=== PATIENT | female | born 1935 | race Caucasian/White ===

== ENCOUNTER 2018-08-26 08:14 | Day surgery (SDC) | payer SELFPAY ==
[2018-08-26 08:47] VITALS: BP 180/73; PULSE 42; RESP 16; TEMP 36.2; O2SAT 95; BMI 31.2
--- NOTE | 2018-08-26 09:35 | PCM.DC.URO ---
Discharge Diet: Light diet - advance as tolerated Discharge Activity: Return to Normal Activity Call your doctor if you observe: Fever of 101 or Higher Allergies/Adverse Reactions: Allergies No Known Allergies Allergy (Verified 08/19/18 09:07) Medications to take at Discharge Latanoprost 0.005% [Xalatan Opthalmic] 1 drop EACH EYE QHS 08/19/18 Metoprolol Succinate [Toprol Xl] 50 mg PO BID 08/19/18 Oxybutynin Chloride [Ditropan Xl] 10 mg PO DAILY #30 tab.er.24 08/26/18 The following prescriptions were given: Oxybutynin Chloride [Ditropan Xl] 10 mg PO DAILY #30 tab.er.24 Primary Care Physician: Gilmer Flores DO [Primary Care Provider] - Test Results: Test results from this visit will be discussed in further detail at your follow-up appointment, if applicable. Please Follow Up With: Chu Theodore MD When: in 2 weeks, please call to make an appointment.
--- NOTE | 2018-08-26 09:43 | DCINST_ITS ---
Discharge Diet: Light diet - advance as tolerated Discharge Activity: Return to Normal Activity Call your doctor if you observe: Fever of 101 or Higher Allergies/Adverse Reactions: Allergies No Known Allergies Allergy (Verified 08/19/18 09:07) Medications to take at Discharge Latanoprost 0.005% [Xalatan Opthalmic] 1 drop EACH EYE QHS 08/19/18 Metoprolol Succinate [Toprol Xl] 50 mg PO BID 08/19/18 Oxybutynin Chloride [Ditropan Xl] 10 mg PO DAILY #30 tab.er.24 08/26/18 The following prescriptions were given: Oxybutynin Chloride [Ditropan Xl] 10 mg PO DAILY #30 tab.er.24 Primary Care Physician: Gilmer Flores DO [Primary Care Provider] - Test Results: Test results from this visit will be discussed in further detail at your follow- up appointment, if applicable. Please Follow Up With: Chu Theodore MD When: in 2 weeks, please call to make an appointment.
[2018-08-26] MEDS: Cefazolin 2 GM in 0.9% Normal Saline 100 ML IV (09:56)
--- NOTE | 2018-08-26 10:15 | OP.PCM_ITS ---
Report of Operation Date of Procedure: 08/26/18 Pre-Operative Diagnosis: Mixed incontinence Post-Operative Diagnosis: The same Surgery/Procedure Performed:: Cystoscopy and injection of Macroplastique into the urethra. Description of Surgical Findings:: 82-year-old female who has a description of incontinence both with mixed and stress incontinence, she leaks with activity she leaks with urgency she does have frequency daytime and nighttime she has a hard time describing her leakage is just that she is wet all the time on examination to the hypermobile urethra and suspicion for stress incontinence but also probably has an underlying source of urge incontinence. Today we will proceed with a Macroplastique injection to help with stress incontinence and also to prescribe medication Ditropan XL 10 mg daily to help with urgency and frequency. 10-year-old female taken back to the operating room the smooth induction of general anesthesia placed supine on the table, the urethra and vaginal area prepped and draped in usual sterile fashion on examination she had a very atrophic vagina a very short length vagina she had a cystocele, urethra was normal, I then did a cystoscopy and cystoscopy was normal no signs of a fistula left and right ureteral orifice normal trigones normal she did have a cystocele no tumors within the bladder I then drained the bladder and then I prepared the first Macroplastique injection capsule 2.5cc this was injected at the 6 o'clock position in the 3 o'clock position and the 9 o'clock position I then prepared the second capsule and this was injected at the 12 o'clock position and then I did some periurethral injections with the final 2 cc at the 6:00 and 3 o'clock position we then use a very small catheter a 12 Nepali cath catheter to drain the bladder I then looked back into his the urethra with a 17 Nepali scope and upon entering the urethra she had a very nice coapted urethra with compression both and left sides of the urethra with the Macroplastique injection on my review this appears it could be successful the bladder was drained and using the 12 Nepali catheter the patient anesthetic was reversed plan to see her back in a few weeks for checkup to see if the injection of the urethra is helping with her stress incontinence I also prescribed some medication Ditropan XL to help with her urgency and frequency she will see us in the office for follow-up. Explained to the patient and the family she may need a touchup injection in 6 months. Type of Anesthesia:: General - Admit VTE Documentation VTE Present on Admission: No VTE Mechan Device Prophylaxis: SCD's
[2018-08-26 10:22] VITALS: BP 150/56; BP 180/73; PULSE 42; RESP 16; TEMP 36.3; O2SAT 95
[2018-08-26 10:30] VITALS: BP 157/57; BP 180/73; PULSE 44; RESP 16; O2SAT 94
[2018-08-26 10:45] VITALS: BP 160/69; BP 180/73; PULSE 44; RESP 16; TEMP 36; O2SAT 94
[2018-08-26] MEDS: Acetaminophen 325 MG Tablet 650 MG PO (11:12)
[2018-08-26 11:24] VITALS: BP 180/73; BP 182/54; PULSE 48; RESP 16; TEMP 37.2; O2SAT 96
--- NOTE | 2018-08-26 12:11 | SUR.PHASEII ---
patient has met all criteria for discharge but ride is not coming until 2-3pm
--- OUTSIDE RECORDS SUMMARY | 2018-11-27 08:39 | XMS RPT_ITS ---
:1935 Author Organization [facility] Care Team Providers Name Role Phone Chu Theodore Attending Unavailable Chu Theodore Referring Unavailable Gilmer Flores Primary Care Unavailable PROBLEMS PROBLEMS No Problem Records FoundPROCEDURES PROCEDURES No Procedure Records FoundRESULTS RESULTS OPERATIVE REPORT Observed: 08/26/2018 Status: F Source: [facility]A 10:[address] [facility] Medical Records Department [address] [place] [id number] Operative Report 08/26/18 1011 MR#: [id number] Acct: [id number] Name: MARIANA SETH Rep #: [id number] : 1935 82 From: Chu Theodore MD PCP: Gilmer Flores MD Status: [facility] Location: [place] [address] Report of Operation Date of Procedure: 08/26/18 Pre-Operative Diagnosis: Mixed incontinence Post-Operative Diagnosis: The same Surgery/Procedure Performed:: Cystoscopy and injection of Macroplastique into the urethra. Description of Surgical Findings:: 82-year-old female who has a description of incontinence both with mixed and stress incontinence, she leaks with activity she leaks with urgency she does have frequency daytime and nighttime she has a hard time describing her leakage is just that she is wet all the time on examination to the hypermobile urethra and suspicion for stress incontinence but also probably has an underlying source of urge incontinence. Today we will proceed with a Macroplastique injection to help with stress incontinence and also to prescribe medication Ditropan XL 10 mg daily to help with urgency and frequency. 10-year-old female taken back to the operating room the smooth induction of general anesthesia placed supine on the table, the urethra and vaginal area prepped and draped in usual sterile fashion on examination she had a very atrophic vagina a very short length vagina she had a cystocele, urethra was normal, I then did a cystoscopy and cystoscopy was normal no signs of a fistula left and right ureteral orifice normal trigones normal she did have a cystocele no tumors within the bladder I then drained the bladder and then I prepared the first Macroplastique injection capsule 2.5cc this was injected at the 6 o'clock position in the 3 o'clock position and the 9 o'clock position I then prepared the second capsule and this was injected at the 12 o'clock position and then I did some periurethral injections with the final 2 cc at the 6:00 and 3 o'clock position we then use a very small catheter a 12 Beninese cath catheter to drain the bladder I then looked back into his the urethra with a 17 Beninese scope and upon entering the urethra she had a very nice coapted urethra with compression both and left sides of the urethra with the Macroplastique injection on my review this appears it could be successful the bladder was drained and using the 12 Beninese catheter the patient anesthetic was reversed plan to see her back in a few weeks for checkup to see if the injection of the urethra is helping with her stress incontinence I also prescribed some medication Ditropan XL to help with her urgency and frequency she will see us in the office for follow-up. Explained to the patient and the family she may need a touchup injection in 6 months. Type of Anesthesia:: General - Admit VTE Documentation VTE Present on Admission: No VTE Mechan Device Prophylaxis: SCD's 08/26/18 1015 <Electronically signed by Chu Theodore MD> Date Chu Theodore MD CC: Chu Theodore MD; Gilmer Flores MD Signed DISCHARGE INSTRUCTION Observed: 08/26/2018 Status: F Source: JOSE G 9:43 AM [facility] REPOSITORY [facility] Medical Records Department [address] [place] [address] Instructions for Home/Discharge Instructions 08/26/18 0935 MR#: [id number] Acct: [id number] Name: MARIANA SETH Rep #: [id number] : 1935 82 From: Chu Theodore MD PCP: Gilmer Flores MD Status: [facility] [place] Diet: Light diet - advance as tolerated Discharge Activity: Return to Normal Activity Call your doctor if you observe: Fever of 101 or Higher Allergies/Adverse Reactions: Allergies No Known Allergies Allergy (Verified 08/19/18 09:07) Medications to take at Discharge Latanoprost 0.005% [Xalatan Opthalmic] 1 drop EACH EYE QHS 08/19/18 Metoprolol Succinate [Toprol Xl] 50 mg PO BID 08/19/18 Oxybutynin Chloride [Ditropan Xl] 10 mg PO DAILY #30 tab.er.24 08/26/18 The following prescriptions were given: Oxybutynin Chloride [Ditropan Xl] 10 mg PO DAILY #30 tab.er.24 Primary Care Physician: Gilmer Flores DO [Primary Care Provider] - Test Results: Test results from this visit will be discussed in further detail at your follow-up appointment, if applicable. Please Follow Up With: Chu Theodore MD When: in 2 weeks, please call to make an appointment. 08/26/18 0943 <Electronically signed by Chu Theodore MD> Date Chu Theodore MD CC: Gilmer Flores MD ALLERGIES ALLERGIES DATE TYPE / CODE NAME / CODE REACTION SEVERITY SOURCE 08/19/2018 Drug No Known Unknown [facility] Allergy/4160 Allergies/F00 Hospital 81374(SNOMED [id number](RXNOR Repository CT) M) ENCOUNTERS ENCOUNTERS ADMIT/DISCHARGE ACCOUNT ADMITTING ENCOUNTER LOCATION SOURCE NUMBER CLASS 08/26/2018/ [id number] Ambulatory Jose G Agustin 8 9 [facility] ing:SDCRoom: Repository AC07 PAYERS PAYERS ENCOUNTER GUARANTOR PAYER SUBSCRIBER SOURCE 08/26/2018 MARIANA Cain Primary Insurance:[facility] MARIANA SETH2693 CR PACKAGE PLANPolicy MARCIANO [facility] [address], Number: [facility] [id number]: [id number] Repository Date:2018-07-21 () 08/26/2018 Secondary NOT GIVENARELY Agustin Insurance:SELF PAY [facility]: Effective Repository Date:2018-07-21
== END 2018-08-26 13:12 | disposition home health service (06) ==
LOC: SDC 08:24 → AC 08:28
PROVIDERS: Family Provider Family Medicine; PCP Family Medicine; Referring Provider Urology; Visit Provider Urology
PROC: 3E0K8GC Introduction of Other Therapeutic Substance into Genitourinary Tract, Via Natural or Artificial Opening Endoscopic (ICD-10-PCS; CPT 52327; principal; 2018-08-26 10:00)
DX: N39.46 Mixed incontinence (principal); N36.43 Combined hypermobility of urethra and intrinsic sphincter deficiency; R35.0 Frequency of micturition; I10 Essential (primary) hypertension; E11.39 Type 2 diabetes mellitus with other diabetic ophthalmic complication; H40.89 Other specified glaucoma; H42 Glaucoma in diseases classified elsewhere; R01.1 Cardiac murmur, unspecified; Z79.899 Other long term (current) drug therapy
CPT/HCPCS: 51715; J7120; J2405

== ENCOUNTER 2019-06-11 16:49 | Observation (INO) | payer OTHER, SELFPAY ==
[2019-06-11 16:50] VITALS: BP 170/80; PULSE 70; RESP 16; TEMP 36.7; O2SAT 94; BMI 30.9
--- NOTE | 2019-06-11 17:32 | EKG12_ITS ---
Test Reason : FALL Blood Pressure : / mmHG Vent. Rate : 070 BPM Atrial Rate : 070 BPM P-R Int : 336 ms QRS Dur : 118 ms QT Int : 446 ms P-R-T Axes : 076 -75 019 degrees QTc Int : 481 ms Sinus rhythm with 1st degree A-V block Right bundle branch block Left anterior fascicular block Bifascicular block Abnormal ECG Confirmed by JED LOBO, DEBORA ([id number]), newspaper editor SEBASTIÁN FRITZ ([id number]) on 06/15/2019 10:20:58 AM Referred By: DC Confirmed By:DEBORA ADKINS MD
--- NOTE | 2019-06-11 17:32 | RAD_ITS ---
STUDY: X-RAY CHEST REASON FOR EXAM: Female, 83 years old. Fall. Cough. TECHNIQUE: Frontal view of the chest COMPARISON: None. FINDINGS: The lungs are clear. There are no pleural effusions. There is no pneumothorax. The heart is normal in size. The visualized osseous structures are within normal limits. RAD/Chest 1 View (Portable) IMPRESSION: No acute thoracic pathology. Electronically Signed: Kwadwo Bowman, at 18:31 EDT Tel , Service support ,
--- NOTE | 2019-06-11 17:32 | RAD_ITS ---
STUDY: X-RAY - LUMBAR SPINE REASON FOR EXAM: Female, 83 years old. Fall TECHNIQUE: 3 view(s) of the lumbar spine were obtained. COMPARISON: None FINDINGS: There is no evidence of fracture or dislocation in the lumbar spine. The vertebral body heights are well-maintained. There are mild degenerative changes with disc space narrowing. There are calcifications in the pelvis which likely represent fibroids. RAD/Lumbar Spine 2 or 3 Views IMPRESSION: No fracture or dislocation in the lumbar spine. Mild degenerative change. Calcifications in the pelvis which likely represent fibroids. Electronically Signed: Kwadwo Bowman, at 18:29 EDT Tel , Service support ,
--- NOTE | 2019-06-11 17:35 | CT_ITS ---
We are attempting to reach an attending provider to discuss findings. An addendum with communication details will be sent when the communication is complete. STUDY: CT BRAIN WITHOUT CONTRAST REASON FOR EXAM: Female, 83 years old. Altered mental status. Fall. RADIATION DOSAGE (If Supplied By Facility): CTDIvol = ( 44.99 ) mGy, DLP = ( 796.11 ) mGycm TECHNIQUE: Transaxial CT imaging of the brain was performed without administration of intravenous contrast material. Individualized dose optimization techniques were used for this CT. COMPARISON: None. FINDINGS: There is a large right MCA territory infarct which appears subacute in nature. There are no additional areas of infarction. There is no acute hemorrhage. The ventricles are normal in configuration. There is no hydrocephalus. The visualized paranasal sinuses are clear. The mastoid air cells are well aerated. There is no skull fracture. CT/Brain/Head without Contrast IMPRESSION: Large right MCA territory infarct which appears subacute in nature. Electronically Signed: Kwadwo Bowman, at 18:23 EDT Tel , Service support ,
--- NOTE | 2019-06-11 17:37 | ED.DCSUM_ITS ---
- ER Visit Summary Date of Service: 06/11/19 Chief Complaint: Fall History of Present Illness: The patient is a 83 F who fell 3 weeks ago and landed on her tailbone. She complains of pain to that area since. She has seen a chiropractor, but is having continued pain. She said that she has not had x- rays. She denies any leg weakness or numbness. Denies any change in bowel or bladder. She also complains of some fuzziness and she thinks she might of hit her head. Her family thinks that she is not acting like herself. No recent falls. She did have cataract surgery on 1 of her eyes weeks ago and then the other eye 2 days ago. No new vision changes. No speech changes or facial droop. No focal weakness. No fevers. No chest pain or shortness of breath. No abdominal pain or GI symptoms. No urinary symptoms. Physical Examination: Afebrile and vital signs unremarkable. Alert and oriented. No acute distress. Head and neck atraumatic. Heart regular. Lungs clear. Abdomen soft. Extremity is nontender with no edema. Straight leg raise negative. Good strength and sensation. Test Results: CT brain, chest x-ray, lumbar x-rays pending. EKG and troponin pending. Basic labs and urinalysis pending. Emergency Department Course and Treatment: Patient declined pain medicine. Will check for trauma as well as underlying causes of her mental status changes. EKG showed sinus rhythm at a rate of 70 with first-degree AV block, right bundle branch block and left anterior fascicular block. CBC, BMP, urinalysis unremarkable. Troponin indeterminate 0.068. Chest x-ray normal and lumbar x-rays unremarkable. CT of her brain was abnormal. She had a right side large MCA territory subacute infarct. I discussed this with the radiologist. He said it probably happened about 2 or 3 days ago, but is not sure. He said it does not look acute. I reevaluated the patient. It sounds like her mental status symptoms started around 2 or 3 days ago. She did not have any other neurologic symptoms. NIH st roke scale is 0. Patient will be admitted for further care. Treatment Plan: As above Disposition: Admission Impression: 1. Indeterminate troponin 2. Subacute right MCA infarct 3. Lumbar back pain This note was generated with [employer]Note[employer] software. It may contain incorrect words, spelling, and punctuation that were not noted in review of the chart prior to signing ED Disposition - Plan for ED Patient: Referrals: Gilmer Flores DO [Primary Care Provider] -
[2019-06-11 18:07] LABS: Absolute Lymphocyte Count 1.77 X10^3/uL (0.83-4.51); Absolute Neutrophil Count 6.1 X10^3/uL (2.0-7.7); Basophil# 0.03 X10^3/uL; Basophil% 0.3 % (0-1); Eosinophil# 0.18 X10^3/uL; Hematocrit 39.3 % (37-47); Hemoglobin 12.6 g/dL (12.0-15.0); Lymphocyte # 1.77 X10^3/ul (4.0); Lymphocyte % 19.8 % (19-41); Mean Corp Hgb Conc 32.1 g/dL (32-36); Mean Corpuscular Hgb 30.1 pg (27.0-32.0); Mean Platelet Vol. 8.7 fl (6.2-12.0); Monocyte# 0.79 X10^3/uL; Monocyte% 8.9 % (0-10); NRBC Flagged by Analyzer 0 % (0-5); Neutrophil # 6.13 X10^3/uL (2.7-7.7); Neutrophil % 68.8 % (47-70); Platelet Count 337 K/mm3 (150-450); RBC Distribution Width CV 13.2 % (11.6-14.6); RBC Distribution Width SD 45.3 fl (35.1-43.9); Red Blood Count 4.18 M/mm3 (4.2-5.4); White Blood Count 8.9 K/mm3 (4.4-11.0)
[2019-06-11 18:24] LABS: Anion Gap 5 (5-15); BUN 29 mg/dL (7-18); BUN/Creat Ratio 25.4 RATIO (10-20); Calcium,Total 9.3 mg/dL (8.5-10.1); Chloride 103 mmol/L (98-107); Creatinine, Serum 1.14 mg/dL (0.55-1.02); EST Glomerular Filtration Rate 49 mL/min (>60); Est Glom Filt Rate - Afr Amer 59 mL/min (>60); Estimated Creatinine Clearance 32.02 ml/min; Glucose 106 mg/dL (74-106); Potassium 3.8 mmol/L (3.5-5.1); Sodium Level 140 mmol/L (136-145)
[2019-06-11 18:59] LABS: Bacteria 0 SEEN /hpf (None Seen); Mucous, Urine 0 SEEN /hpf (<or=2+); Red Blood Cells-Urine 0 SEEN /hpf (0-5); Squamous Epithelial Cells - UA 0 SEEN /hpf (5-10); White Blood Cells 0 SEEN /hpf (0-5)
[2019-06-11 19:05] LABS: Color, Urine Yellow (Yellow); Glucose, Dipstick Normal (Normal); Ketone-Dipstick Negative (Negative); Leukocyte Esterase-Dipstick Negative /ul (Negative); Nitrite-Dipstick Negative (Negative); Occult Blood-Urine Negative /ul (Negative); Protein-Dipstick Negative (Negative); Specific Gravity, Urine 1.005 (1.002-1.030); Urine Bilirubin Dipstick Negative (Negative); Urine Clarity Clear (Clear); Urine Urobilinogen Normal (Normal)
[2019-06-11] MEDS: fentaNYL 100 MCG/2 ML Ampul 50 MCG IV (19:06)
[2019-06-11 19:08] VITALS: BP 196/80; PULSE 66; RESP 19; O2SAT 96
--- NOTE | 2019-06-11 20:14 | HP.PCM_ITS ---
Problem List (1) Focal infarction of brain Status: Acute (2) Hypertensive urgency Status: Acute (3) Acute encephalopathy Status: Acute (4) Lower back pain Status: Acute History of Present Illness Date of Admission: 06/11/19 Chief Complaint: altered mental status The patient is a 83 year old F with a significant history of hypertension who recently had a cataract surgery now with altered mental status that started a day before his presentation. Family described this as fuzzy mindedness. A CT of her brain showed large right MCA territory infarct which appears subacute in nature. Patient denies inability to walk; speech changes or any focal neurological symptoms. Patient indeed was brought to the hospital because of progressively worsening lower back pain that she developed after falling 3 weeks ago on her tailbone. She went to a chiropractor and has been receiving ice and probable TENS to the site. Her pain worsens when she sits too long. Her pain improves with the chiropractic maneuvers and ice. She denies any bowel or bladder incontinence. At the Emergency department her troponin was found to be elevated. Past Medical History Medical History: Medical History (Last Updated 06/12/19 @ 06:05 by Korey Ruff MD) HTN (hypertension) I10 Allergies No Known Allergies Allergy (Verified 08/19/18 09:07) Home Medications: Ambulatory Orders Medication Instructions Recorded Metoprolol Succinate [Toprol Xl] 50 mg PO BID 08/19/18 Brinzolamide/Brimonid Tart 1 drp EACH EYE BID 06/11/19 [Simbrinza 1%-0.2% Eye Drops] Ofloxacin 1 drp RIGHT EYE 4X/DAY 06/11/19 Prednisolone Acetate 1 drp RIGHT EYE 4X/DAY 06/11/19 Surgical History: cataract, - - Six C-sections Lives: Spouse/ Significant Other Smoking Status: Never smoker Alcohol: None - *Family History Maternal History Items: Cancer - colon Paternal History Items: Heart Disease Review of Systems Constitutional: Denies: Chills, Fever, Weight Change HEENT: Denies: Head Aches, Sinus Congestion, Sinus Drainage Cardiovascular: Denies: Chest Pain, Palpitations Respiratory: Denies: Cough, Shortness of breath at rest, Sputum production Gastrointestinal: Denies: Abdominal Pain, Nausea, Vomiting Genitourinary: Denies: Dysuria Musculoskeletal: Reports: Back Pain. Denies: Joint Pain, Joint Tenderness Skin: Denies: Rash, Wounds Neurological: Reports: Confusion. Denies: Focal weakness, Numbness, Tingling Psychiatric: Denies: Anxiety, Depression, Homicidal Ideations, Suicidal Ideations Hematologic/ Lymphatic: Denies: Easy Bruising, Easy Bleeding VTE Information - Inpt Only VTE Present on Admission: No VTE Mechan Device Prophylaxis: None VTE Pharm Prophylaxis ordered?: Yes Patient Problems: Active and Suspected Problems (Last Updated 06/12/19 @ 06:05 by Korey Ruff MD) Focal infarction of brain (Acute) Hypertensive urgency (Acute) Acute encephalopathy (Acute) Lower back pain (Acute) - Physical Exam General: Alert, Oriented x3, Cooperative HEENT: Atraumatic, PERRLA, EOMI, Normocephalic Neck: Supple, No JVD, Negative Carotid Bruits Lungs: Clear to auscultation, Normal air movement Cardiovascular: Regular rate, No murmurs Abdomen: Bowel Sounds Present, Soft, Non Tender Extremities: No edema, Capillary Refill Less than 3 Seconds Skin: No rashes, No breakdown Musculoskeletal: No Tenderness to Palpation of Joints or Extremities Neurological: Cranial nerves II-XII grossly intact - Not spontaneous in answering questions. Unclear how much is due to language barrier as family has to interprete some questions to patient with different language., Motor Exam 5/5 strength throughout, Muscle tone normal, - - Needs increase effort to follow some directions Psych/Mental Status: Normal Affect, Appropriate Vital Signs Temp Pulse Resp BP Pulse Ox 98.1 F 66 19 H 196/80 H 96 06/11/19 16:50 06/11/19 19:08 06/11/19 19:08 06/11/19 19:08 06/11/19 19:08 Oxygen Delivery Method Room Air Weight: 79.379 kg Body Mass Index (BMI) 30.9 Laboratory Tests Past 24 Hrs 06/11/19 06/11/19 06/11/19 17:55 17:55 18:50 WBC 8.9 RBC 4.18 L Hgb 12.6 Hct 39.3 MCV 94.0 MCH 30.1 MCHC 32.1 RDW Std Deviation 45.3 H RDW Coeff of Azeb 13.2 Plt Count 337 MPV 8.7 Immature Gran % (Auto) 0.200 Neut % (Auto) 68.8 Lymph % (Auto) 19.8 [place] % (Auto) 8.9 Eos % (Auto) 2.0 Baso % (Auto) 0.3 Absolute Neuts (auto) 6.1 Absolute Lymphs (auto) 1.77 Nucleated RBC % 0 Sodium 140 Potassium 3.8 Chloride 103 Carbon Dioxide 32.0 Anion Gap 5 BUN 29 H Creatinine 1.14 H Estim Creat Clear Calc 32.02 Est GFR (MDRD) Af Amer 59 L Est GFR (MDRD) Non-Af 49 L BUN/Creatinine Ratio 25.4 H Glucose 106 Calcium 9.3 Troponin I 0.068 H Urine Color Yellow Urine Clarity Clear Urine pH 7.0 Ur Specific [place] 1.005 Urine Protein Negative Urine Glucose (UA) Normal Urine Ketones Negative Urine Occult Blood Negative Urine Nitrite Negative Urine Bilirubin Negative Urine Urobilinogen Normal Ur Leukocyte Esterase Negative Urine RBC 0 SEEN Urine WBC 0 SEEN Ur Squamous Epith Cells 0 SEEN Urine Bacteria 0 SEEN Urine Mucus 0 SEEN Assessment/Plan All Active Problems (Last Updated 06/12/19 @ 06:05 by Korey Ruff MD) Focal infarction of brain (Acute) Hypertensive urgency (Acute) Acute encephalopathy (Acute) Lower back pain (Acute) The patient is a 83 year old F with a significant history of hypertension who recently had a cataract surgery now with altered mental status found to have radiographic evidence of large large right MCA territory infarct and also with back pain following recent fall. Subacute right MCA territorial infarcts NINDS NIH Scale was 0 CT of the head showed large right MCA territory infarct which appears subacute in nature. CT of the head was independently reviewed. I agree with radiologist interpretation. Per emergency department radiograph was discussed with radiologist who said that the stroke might have occurred within 2 to 3 days. Patient is not a candidate of a thrombectomy since her symptoms are cared more than 24 hours ago. -Check Hba1c, Lipid level Physical therapy, occupational therapy and speech therapy to work with patient. N.p.o. until bedside swallow eval. Daily aspirin. High intensity statin Lipid profile and A1c ordered. Patient is outside window of permissive hypertension since infarct is subacute on CT. MRI/MRAM of head; brain; and neck. Echocardiogram ordered. Hypertensive urgency On presentation higher systolic blood pressure was 258 Home blood pressure medication continued. Labetalol as needed ordered. Trend blood pressure and adjust blood pressure medications. Acute encephalopathy Patient does not have change of level of consciousness but family reports that she is fuzzy minded. Likely due to stroke. Management of stroke as above. Lower back pain Oxycodone PRN ordered. PRN Zofran IV and bowel protocol ordered. PT and OT to work patient. Elevated troponin Troponin elevated. Trended up. CTPA on a rising course. Likely secondary to subacute infarct. No ST or T wave abnormality. Cardiology consulted. DVT prophylaxis SCD ordered Code Visit Inpatient E&M: 67724 Init Hosp L3
--- NOTE | 2019-06-11 20:58 | ECHOD_ITS ---
Reason For Study: TIA/CVA Procedure This was a 2D Doppler, Color Flow transthoracic echocardiogram. Exam performed portable in patient room. Left Ventricle Severe concentric left ventricular hypertrophy. The estimated ejection fraction is 65 %. No regional wall motion abnormalities noted. Right Ventricle Normal size and thickness. Normal systolic function. Atria The left atrium is severely enlarged. Normal right atrium. Normal atrial septum. Bubble contrast study negative for right to left interatrial shunt. Mitral Valve Mild diffuse mitral valve thickening. Severe mitral annular calcification extending into the posterior leaflet. Moderate mitral valve stenosis. Peak transmitral valve gradient 13 mmHg. Mean transmitral valve gradient 5 mmHg. Mild (1+) mitral valve insufficiency. Tricuspid Valve Normal tricuspid valve. Mild (1+) tricuspid valve insufficiency. Right ventricular systolic pressure estimated to be 51 mmHg. Moderate pulmonary hypertension. Aortic Valve Trisinus/trileaflet aortic valve. Moderate diffuse aortic valve thickening. Moderate diffuse aortic valve calcification. Moderate restriction of the aortic valve. Mild to moderate aortic stenosis. Peak aortic valve gradient 26 mmHg. Mean aortic valve gradient 14 mmHg. Calculated aortic valve area (continuity equation) is 1.2 cm2. Pulmonic Valve Normal pulmonic valve. Great Vessels Calcified aortic root. Mild atherosclerosis of the aortic arch. Normal inferior vena cava. Inferior vena cava collapse with sniff. Pericardium/Pleural No pericardial effusion. Medication Performed a rapid injection of agitated mix of 9 cc saline and 1cc air to assess for atrial septal defect. MMode/2D Measurements & Calculations LVIDd: 4.4 cm IVSd: 1.5 cm LVOT diam: 1.9 cm LVIDs: 3.1 cm LVPWd: 1.5 cm RVDd: 3.5 cm FS: 29.1 % LVOT area: 2.9 cm2 Ao root diam: 2.9 cm LAV(MOD-bp): 106.5 ml LA A4 area: 30.7 cm2 LAV(MOD-bp) Indexed: 58.3 ml/m2 LAV(MOD-sp2): 102.5 ml LAV(MOD-sp4): 105.0 ml LA dimension(2D): 5.6 cm RA A4 area: 16.2 cm2 Time Measurements MV dec time: 0.19 sec Doppler Measurements & Calculations MV E max ronnell: 203.5 cm/sec MV V2 max: 178.2 cm/sec Ao V2 max: 252.4 cm/sec MV A max ronnell: 136.5 cm/sec MV max P.7 mmHg Ao max P.5 mmHg MV E/A: 1.5 MV V2 mean: 107.8 cm/sec Ao V2 mean: 176.2 cm/sec MV mean P.1 mmHg Ao mean P.8 mmHg MV V2 VTI: 66.4 cm Ao V2 VTI: 62.9 cm MVA(VTI): 1.2 cm2 FADUMO(I,D): 1.2 cm2 FADUMO(V,D): 1.2 cm2 LV V1 max: 101.9 cm/sec SV(LVOT): 78.5 ml PA V2 max: 123.1 cm/sec LV V1 max P.2 mmHg LV V1 mean P.4 mmHg LV V1 mean: 73.4 cm/sec LV V1 VTI: 27.1 cm TR max ronnell: 339.8 cm/sec MV P1/2t-pr_phl: 134.7 msec TR max P.2 mmHg Interpretation Summary Severe concentric left ventricular hypertrophy. The estimated ejection fraction is 65 %. The left atrium is severely enlarged. Bubble contrast study negative for right to left interatrial shunt. Moderate mitral valve stenosis. Mild (1+) mitral valve insufficiency. Mild (1+) tricuspid valve insufficiency. Right ventricular systolic pressure estimated to be 51 mmHg. Moderate pulmonary hypertension. Mild to moderate aortic stenosis. Calculated aortic valve area (continuity equation) is 1.2 cm2. There is no comparison study available. Ordering Physician: Korey Ruff Referring Physician: DEBBY SALGADO Performed By: Nkechi Gaytan, MACARENA, RVT
[2019-06-11 20:59] VITALS: PULSE 85
[2019-06-11 21:06] VITALS: BMI 31.1
[2019-06-11 21:10] VITALS: BP 258/90; PULSE 92; RESP 18; TEMP 37.1; O2SAT 92
[2019-06-11 21:29] VITALS: BP 248/88
[2019-06-11 22:00] VITALS: BMI 31.2
[2019-06-11 22:01] LABS: Hemoglobin A1c 6.3 % (4.2-6.3)
[2019-06-11] MEDS: prednisoLONE eye drops (5 mL) 1 DROP OPTH.BTL 1 DRP RIGHT EYE (22:14)
[2019-06-11 22:15] VITALS: PULSE 92
[2019-06-11] MEDS: Heparin Injection (Vial) 5,000 UNIT/ML VIAL 5000 UNIT SC (22:15)
[2019-06-11] MEDS: 0.9% NaCl Peripheral Flush Adult/Peds IV (22:15)
[2019-06-11] MEDS: Senna/Docusate Sodium 1 Tablet PO (22:15)
[2019-06-11] MEDS: Metoprolol Tartrate 50 MG Tablet PO (22:15)
[2019-06-11] MEDS: Atorvastatin Calcium 40 MG Tablet PO (22:15)
[2019-06-11 22:57] VITALS: BMI 31.1
[2019-06-11] MEDS: Acetaminophen 325 MG Tablet 650 MG PO (23:09)
[2019-06-12] VITALS (10 sets, daily range): BP systolic 150–218; BP diastolic 60–67; PULSE 45–98; RESP 16–18; TEMP 36.5–36.9; O2SAT 93–98; BMI 31.1
[2019-06-12] MEDS: MELATONIN 3 MG TABLET PO (00:26)
[2019-06-12] MEDS: Acetaminophen 325 MG Tablet 650 MG PO ×2 (05:06→12:15)
[2019-06-12 06:59] LABS: Cholesterol 219 mg/dL (200); High Density Lipoprotein 50 mg/dL; Triglycerides 127 mg/dL; Very Low Density Lipoprotein 25 mg/dL (5-40)
--- NOTE | 2019-06-12 07:53 | DS.PCM_ITS ---
Discharge Date and Diagnosis - Problem List Patient Problems: Active and Suspected Problems (Last Updated 06/12/19 @ 06:05 by Korey Ruff MD) Focal infarction of brain (Acute) Hypertensive urgency (Acute) Acute encephalopathy (Acute) Lower back pain (Acute) Date of Admission: 06/11/19 Date of Discharge: 06/12/19 - Primary Discharge Diagnosis Active and Suspected Problems (Last Updated 06/12/19 @ 06:05 by Korey Ruff MD) Focal infarction of brain (Acute) Hypertensive urgency (Acute) Acute encephalopathy (Acute) Lower back pain (Acute) Hospital Course and Treatment Procedures: 2-D Echocardiogram Summary of Care Provided: The patient is a 83 year old F with a significant history of hypertension who recently had a cataract surgery now with altered mental status found to have radiographic evidence of large large right MCA territory infarct and also with back pain following recent fall. Due to lack of neurology coverage at our Hospital patient will be transferred to outside Hospital. Case was discussed with [facility] Subacute right MCA territorial infarcts NINDS NIH Scale per protocol CT of the head showed large right MCA territory infarct which appears subacute in nature. CT of the head was independently reviewed. I agree with radiologist interpretation. Per emergency department radiograph was discussed with radiol ogist who said that the stroke might have occurred within 2 to 3 days. Patient is not a candidate of a thrombectomy since her symptoms occurred more than 24 hours ago. -Check Hba1c, Lipid level Physical therapy, occupational therapy and speech therapy to work with patient. N.p.o. until bedside swallow eval. Daily aspirin. High intensity statin Lipid profile and A1c ordered. Patient is outside window of permissive hypertension since infarct is subacute on CT. MRI/MRAM of head; brain; and neck ordered. Echocardiogram ordered and done: Per seat cover maker notes : A bedside echocardiogram was performed which demonstrated moderate left ventricular hypertrophy, normal LV and intact LV function with an EF of 65%, severe posterior mitral leaflet mitral annular calcification, left atrial enlargement, moderate thickening of the aortic valve with at least moderate aortic stenosis. Final results are pending. Because there is no Neurology coverage over the weekend at our Hospital ([facility]) patient will be transferred to outside Hospital. transfer line to [facility] was done Hypertensive urgency On presentation higher systolic blood pressure was 258 Home blood pressure medication was ordered with prn labetatol also ordered. Patient received prn labetatolol. BP thereafter was in the 150S (systolic) Acute encephalopathy Patient does not have change of level of consciousness but family reports that she is fuzzy minded. Likely due to stroke. Management of stroke as above. Lower back pain Oxycodone PRN ordered. PRN Zofran IV and bowel protocol ordered. PT and OT to work patient. Elevated troponin Troponin elevated. Trended up. CTPA on a rising course. Likely secondary to subacute infarct. No ST or T wave abnormality. Cardiology consulted. DVT prophylaxis SCD Time for discharge was 2 hours. This involved talking to patient, physical exams, discussing transfer with patient; discussing transfer with family; and discussing transfer with accepting physician for transfer and transfer center line. Patient Problems: Active and Suspected Problems (Last Updated 06/12/19 @ 06:05 by Korey Ruff MD) Focal infarction of brain (Acute) Hypertensive urgency (Acute) Acute encephalopathy (Acute) Lower back pain (Acute) - Physical Exam General: Alert, Oriented x3, Cooperative HEENT: Atraumatic, PERRLA, EOMI, Normocephalic Neck: Supple, No JVD, Negative Carotid Bruits Lungs: Clear to auscultation, Normal air movement Cardiovascular: Regular rate, No murmurs Abdomen: Bowel Sounds Present, Soft, Non Tender Extremities: No edema, Capillary Refill Less than 3 Seconds Skin: No rashes, No breakdown Musculoskeletal: No Tenderness to Palpation of Joints or Extremities Neurological: Cranial nerves II-XII grossly intact, Muscle tone normal, - - Noted to have mild left sided neglect. Psych/Mental Status: Normal Affect, Appropriate Vital Signs Temp Pulse Resp BP Pulse Ox 98.2 F 50 L 16 150/67 H 98 06/12/19 05:10 06/12/19 07:03 06/12/19 05:10 06/12/19 05:10 06/12/19 05:10 Oxygen Delivery Method Room Air Weight: 79.8 kg Body Mass Index (BMI) 31.1 Intake and Output for Last 24 Hours 06/10/19 06/11/19 06/12/19 23:59 23:59 23:59 Intake Total 0 / 0 50 / 50 Balance 0 / 0 50 / 50 Laboratory Tests Past 24 Hrs 06/11/19 06/11/19 06/11/19 17:55 17:55 17:55 WBC 8.9 RBC 4.18 L Hgb 12.6 Hct 39.3 MCV 94.0 MCH 30.1 MCHC 32.1 RDW Std Deviation 45.3 H RDW Coeff of Azeb 13.2 Plt Count 337 MPV 8.7 Immature Gran % (Auto) 0.200 Neut % (Auto) 68.8 Lymph % (Auto) 19.8 [place] % (Auto) 8.9 Eos % (Auto) 2.0 Baso % (Auto) 0.3 Absolute Neuts (auto) 6.1 Absolute Lymphs (auto) 1.77 Nucleated RBC % 0 Sodium 140 Potassium 3.8 Chloride 103 Carbon Dioxide 32.0 Anion Gap 5 BUN 29 H Creatinine 1.14 H Estim Creat Clear Calc 32.02 Est GFR (MDRD) Af Amer 59 L Est GFR (MDRD) Non-Af 49 L BUN/Creatinine Ratio 25.4 H Glucose 106 Hemoglobin A1c 6.3 Calcium 9.3 Troponin I 0.068 H Triglycerides Cholesterol LDL Cholesterol VLDL Cholesterol HDL Cholesterol Urine Color Urine Clarity Urine pH Ur Specific [place] Urine Protein Urine Glucose (UA) Urine Ketones Urine Occult Blood Urine Nitrite Urine Bilirubin Urine Urobilinogen Ur Leukocyte Esterase Urine RBC Urine WBC Ur Squamous Epith Cells Urine Bacteria Urine Mucus 06/11/19 06/11/19 06/12/19 18:50 21:22 00:02 WBC RBC Hgb Hct MCV MCH MCHC RDW Std Deviation RDW Coeff of Azeb Plt Count MPV Immature Gran % (Auto) Neut % (Auto) Lymph % (Auto) [place] % (Auto) Eos % (Auto) Baso % (Auto) Absolute Neuts (auto) Absolute Lymphs (auto) Nucleated RBC % Sodium Potassium Chloride Carbon Dioxide Anion Gap BUN Creatinine Estim Creat Clear Calc Est GFR (MDRD) Af Amer Est GFR (MDRD) Non-Af BUN/Creatinine Ratio Glucose Hemoglobin A1c Calcium Troponin I 0.096 H 0.166 H Triglycerides Cholesterol LDL Cholesterol VLDL Cholesterol HDL Cholesterol Urine Color Yellow Urine Clarity Clear Urine pH 7.0 Ur Specific [place] 1.005 Urine Protein Negative Urine Glucose (UA) Normal Urine Ketones Negative Urine Occult Blood Negative Urine Nitrite Negative Urine Bilirubin Negative Urine Urobilinogen Normal Ur Leukocyte Esterase Negative Urine RBC 0 SEEN Urine WBC 0 SEEN Ur Squamous Epith Cells 0 SEEN Urine Bacteria 0 SEEN Urine Mucus 0 SEEN 06/12/19 06/12/19 06/12/19 03:25 05:58 05:58 WBC RBC Hgb Hct MCV MCH MCHC RDW Std Deviation RDW Coeff of Azeb Plt Count MPV Immature Gran % (Auto) Neut % (Auto) Lymph % (Auto) [place] % (Auto) Eos % (Auto) Baso % (Auto) Absolute Neuts (auto) Absolute Lymphs (auto) Nucleated RBC % Sodium Potassium Chloride Carbon Dioxide Anion Gap BUN Creatinine Estim Creat Clear Calc Est GFR (MDRD) Af Amer Est GFR (MDRD) Non-Af BUN/Creatinine Ratio Glucose Hemoglobin A1c Calcium Troponin I 0.196 H 0.196 H Triglycerides 127 Cholesterol 219 H LDL Cholesterol 144 H VLDL Cholesterol 25 HDL Cholesterol 50 Urine Color Urine Clarity Urine pH Ur Specific [place] Urine Protein Urine Glucose (UA) Urine Ketones Urine Occult Blood Urine Nitrite Urine Bilirubin Urine Urobilinogen Ur Leukocyte Esterase Urine RBC Urine WBC Ur Squamous Epith Cells Urine Bacteria Urine Mucus Home Medications: Medications to take at Discharge Metoprolol Succinate [Toprol Xl] 50 mg PO BID 08/19/18 Brinzolamide/Brimonid Tart [Simbrinza 1%-0.2% Eye Drops] 1 drp EACH EYE BID 06/11/19 Ofloxacin 1 drp RIGHT EYE 4X/DAY 06/11/19 Prednisolone Acetate 1 drp RIGHT EYE 4X/DAY 06/11/19 Primary Care Physician: Gilmer Flores DO [Primary Care Provider] - Medical Necessity - Tobacco Use Smoking Status: Never smoker Tobacco Use: Non-smoker Meaningful Use Info Meaningful Use Diagnoses (Choose all that apply): Ischemic CVA - CVA Therapy Assessed for PT,OT and/or ST?: Yes - Ischemic Stroke Antithrombotic order at d/c?: No Reason antithrombotic not ordered: Treatment not Indicated Dx of Atrial fib/flutter?: No Anticoagulant at discharge?: No Reason anticoagulant not ordered: Treatment not Indicated Statins at discharge?: Yes Primary Dx Acute Ischemic CVA?: Yes IV tPA ordered during stay?: No Reason IV t-PA not ordered: Medical Contraindication - VTE Anticoag overlap given w/in hospital stay or rx'd at dc?: Yes Pt receive overlap for 5 days?: No Reason overlap not ordered, prescribed, or given for 5 days: Treatment Not Indicated Code Visit Inpatient E&M: 84508 Disch Hosp
--- NOTE | 2019-06-12 09:25 | PCM.CONS.C ---
Problem List (1) Hypertensive urgency Status: Acute Reason for Consult Date of Consultation: 06/12/19 Reason for Consultation: Abnormal troponin, hypertension History of Present Illness: The patient is a 83 year old F nondiabetic, non-smoker, no previous known coronary artery history, was told she had a heart murmur about 10 years ago but never had it investigated. Patient was doing well up until around 3 weeks ago when she fell hitting her tailbone. She had subsequent pain in that area for several days, and underwent 2 cataract procedures during that interim time. Apparently the patient's pain continued, and the patient's family noted that she was not acting herself with some difficulty with speech but no focal deficits. Her blood pressure went as high as 250/90. Patient sought medical attention [facility] on 06/11/2019 and an EKG demonstrated normal sinus rhythm with first-degree AV block, right bundle branch block and left anterior hemiblock. In order to evaluate her mental status issues she underwent a CT scan which showed a large right-sided subacute middle cerebral artery infarct. In addition initial troponins were obtained and which were found to be 0.08, and increased to 0.196. At no time as the patient complained of chest pain, angina, shortness of breath or dyspnea on exertion. She denies any palpitations, presyncope or syncope. She thinks that she may have hit her head when she fell 3 weeks ago. Patient was treated with baby aspirin. A bedside echocardiogram was performed which demonstrated moderate left ventricular hypertrophy, normal LV and intact LV function with an EF of 65%, severe posterior mitral leaflet mitral annular calcification, left atrial enlargement, moderate thickening of the aortic valve with at least moderate aortic stenosis. Final results are pending. Patient is awaiting transfer to [facility] for further care of her middle cerebral infarct. [] Past Medical History Allergies/Adverse Reactions: Allergies No Known Allergies Allergy (Verified 08/19/18 09:07) Home Medications: Ambulatory Orders Medication Instructions Recorded Metoprolol Succinate [Toprol Xl] 50 mg PO BID 08/19/18 Brinzolamide/Brimonid Tart 1 drp EACH EYE BID 06/11/19 [Simbrinza 1%-0.2% Eye Drops] Ofloxacin 1 drp RIGHT EYE 4X/DAY 06/11/19 Prednisolone Acetate 1 drp RIGHT EYE 4X/DAY 06/11/19 Surgical History: cataract, - - Six C-sections - *Family History Maternal History Items: Cancer - colon Paternal History Items: Heart Disease Lives: Spouse/ Significant Other Smoking Status: Never smoker Tobacco Use: Non-smoker Alcohol: None Review of Systems - Review of Systems General: Denies: Fever, Night Sweats, Fatigue Cardiovascular: Denies: Chest Discomfort, Shortness of Breath, Orthopnea, PND, Peripheral Edema, Palpitations, Lightheadedness, Dizziness, Near Syncope, Syncope Respiratory: Denies: Cough, Sputum Production, Hemoptysis Gastrointestinal: Denies: Hematemesis, Hematochezia, Melena Genitourinary: Denies: Dysuria, Hematuria Skin: Denies: Rash Subjectve: Patient resting comfortably, no acute distress, no focal deficits other than difficulty with eye tracking. Objective: Vital Signs Temp Pulse Resp BP Pulse Ox 98.2 F 50 L 16 150/67 H 95 06/12/19 05:10 06/12/19 07:03 06/12/19 05:10 06/12/19 05:10 06/12/19 07:20 Oxygen Delivery Method Room Air Weight: 175 lb 14.862 oz Body Mass Index (BMI) 31.1 Intake and Output for Last 24 Hours 06/10/19 06/11/19 06/12/19 23:59 23:59 23:59 Intake Total 0 / 0 50 / 50 Balance 0 / 0 50 / 50 General: Awake, Alert, Oriented x 3 HEENT: PERRL, EOMI, Sclera Non Icteric Neck: Supple, Good ROM, No Lymph Node Enlargement Lungs: Clear to auscultation Cardiovascular: Regular Rhythm, Normal S1, Normal S2, No Rubs, No Gallops Murmur Murmur: Grade 3/6, Crescendo-Decrescendo Vascular: Radiation of Murmur to Carotid Arteries Abdomen: Bowel Sounds Present, Soft, Non Tender, No HSM, No Organomegaly 06/11/19 17:55: WBC 8.9, RBC 4.18 L, Hgb 12.6, Hct 39.3, MCV 94.0, MCH 30.1, MCHC 32.1, Plt Count 337, MPV 8.7, Immature Gran % (Auto) 0.200, Neut % (Auto) 68.8, Lymph % (Auto) 19.8, [place] % (Auto) 8.9, Eos % (Auto) 2.0, Baso % (Auto) 0.3, Absolute Neuts (auto) 6.1, Nucleated RBC % 0 06/11/19 17:55: Sodium 140, Potassium 3.8, Chloride 103, Carbon Dioxide 32.0, Anion Gap 5, BUN 29 H, Creatinine 1.14 H, Est GFR (MDRD) Af Amer 59 L, Est GFR (MDRD) Non-Af 49 L, BUN/Creatinine Ratio 25.4 H, Glucose 106, Calcium 9.3, Troponin I 0.068 H 06/11/19 17:55: Hemoglobin A1c 6.3 06/11/19 18:50: Urine Color Yellow, Urine Clarity Clear, Urine pH 7.0, Ur Specific [place] 1.005, Urine Protein Negative, Urine Glucose (UA) Normal, Urine Ketones Negative, Urine Occult Blood Negative, Urine Nitrite Negative, Urine Bilirubin Negative, Urine Urobilinogen Normal, Ur Leukocyte Esterase Negative, Urine RBC 0 SEEN, Urine WBC 0 SEEN 06/11/19 21:22: Troponin I 0.096 H 06/12/19 00:02: Troponin I 0.166 H 06/12/19 03:25: Troponin I 0.196 H 06/12/19 05:58: Triglycerides 127, Cholesterol 219 H, LDL Cholesterol 144 H, VLDL Cholesterol 25, HDL Cholesterol 50 06/12/19 05:58: Troponin I 0.196 H Rhythm: EKG: As above ECHO: Pending Stress Test: Cardiac Cath: PCI: CT Surgery: Holter monitor: EPS: PPM: CXR: Chest CT Scan: Assessment/Plan 1. Abnormal troponin: Patient has a mildly abnormal troponin superimposed on lack of cardiac symptoms, no chest pain, no anginal, and may be due to myocardial strain given her LVH and severe hypertension superimposed on her large subacute right middle cerebral infarct. At this point I would not recommend any stress testing, or catheterization given her recent infarct. Would recommend gentle reduction of her blood pressure to avoid watershed phenomena and worsening of cerebrovascular accident. A 2D echo was performed at the bedside and we will make a copy of this for transfer to [facility]. Pulmonary evaluation shows intact LV function with an EF of 65%, left ventricular hypertrophy, left atrial enlargement, severe mitral annular calcification of the posterior mitral leaflet area, and moderate aortic stenosis, no vegetations noted. Once the patient recovers from her CVA, she may benefit from evaluation of her cardiac structures with a noninvasive stress test. Would recommend continuing beta-celeste therapy and gentle blood pressure reduction per neurology recommendations when she arrived at [facility]. Would not recommend anticoagulation at this time, at least from a cardiac standpoint given the patient's lack of chest pain or anginal symptoms, very mild troponin release, and lack of EKG changes as well as given the patient's recent subacute infarct. I will defer anticoagulation to neurology. 2. Hyperlipidemia: Recommend obtaining a fasting lipid profile and treating her LDL cholesterol is greater than 130 with statin based medications. 3. Patient may follow-up with Dr. Avendano after discharge from [facility] for her CVA. 4. Thank you very much for the opportunity to participate in the cardiac care of your patient. Consultation time took place between 8 AM and 8:30 AM. Code Visit Inpatient E&M: 10927 Init Hosp L2
[2019-06-12] MEDS: Aspirin 81 MG TAB.CHEW PO (09:32)
[2019-06-12] MEDS: Senna/Docusate Sodium 1 Tablet PO (09:32)
[2019-06-12] MEDS: prednisoLONE eye drops (5 mL) 1 DROP OPTH.BTL 1 DRP RIGHT EYE ×2 (09:32→13:56)
[2019-06-12] MEDS: OFLOXACIN 5 ML DROPS RIGHT EYE (13:57)
[2019-06-12] MEDS: BRINZOLAMIDE/BRIMONID TART 1 DROP DROPS.SUSP 1 DRP EACH EYE (13:57)
--- NOTE | 2019-06-12 14:55 | NURSING ---
CALLED REPORT TO JUN HERNANDEZ AT [facility]. NO QUESTIONS. GAVE UNIT PHONE NUMBER IS QUESTIONS WOULD ARISE.
== END 2019-06-12 15:58 | disposition short-term general hospital (02) ==
LOC: ED 17:35 → PCU 21:24
PROVIDERS: Admitting Provider Hospitalist; Emergency Provider Emergency Medicine; Family Provider Family Medicine; PCP Family Medicine; Visit Provider Family Medicine
DX: I63.511 Cerebral infarction due to unspecified occlusion or stenosis of right middle cerebral artery (principal); M54.5 Low back pain; I08.1 Rheumatic disorders of both mitral and tricuspid valves; I70.0 Atherosclerosis of aorta; I16.0 Hypertensive urgency; R29.700 NIHSS score 0; I10 Essential (primary) hypertension; Z79.899 Other long term (current) drug therapy; R41.4 Neurologic neglect syndrome; I45.2 Bifascicular block; E78.5 Hyperlipidemia, unspecified
CPT/HCPCS: 36415; 70450; 71045; 72100; 80048; 80061; 81001; 83036; 84484; 85025; 93005; 93306; 94762; 96372; 96374; 96375; 97162; 97165; 99218; 99284; A4216; G0378

== ENCOUNTER 2021-04-02 21:15 | Inpatient (IN) | payer OTHER, SELFPAY ==
[2019-06-12 11:46] VITALS: BMI 31.1
[2021-04-02] VITALS (20 sets, daily range): BP systolic 113–213; BP diastolic 47–93; PULSE 45–59; RESP 12–18; TEMP 36.2–36.4; O2SAT 95–99; BMI 28.5
--- NOTE | 2021-04-02 21:19 | CT_ITS ---
STUDY: CT HEAD STROKE PROTOCOL W/O CONTRAST INJECTION REASON FOR EXAM: Female, 85 years old. Neuro deficit, acute, stroke suspected RADIATION DOSAGE (If Supplied By Facility): CTDIvol = ( 44.99 ) mGy, DLP = ( 829.85 ) mGycm TECHNIQUE: Transaxial CT imaging of the brain was performed without administration of intravenous contrast material. Individualized dose optimization techniques were used for this CT. COMPARISON: Comparison is made with prior study dated 06/11/2019. FINDINGS: Normal soft tissue structures. Normal calvarium. There is mild cerebral atrophy with widening of the extra-axial spaces and ventricular dilatation. Stable encephalomalacia involving the right posterior parietal occipital lobes in keeping with old ischemia. There is evidence of an old infarct in the right globus pallidus. Normal brainstem. There is mild cerebellar atrophy. There is no intracranial hemorrhage. There are no findings of an acute ischemic infarction. Calcific plaques of the vertebral arteries and cavernous portions of the internal carotid arteries bilaterally. Normal visualized paranasal sinuses. CT/STROKE Brain/Head without Cont IMPRESSION: Chronic involutional changes of the brain. 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 N.B. : The above Results were Read Back by Jose Angelo MD to TAYLOR EPPS and understanding confirmed on 04/02/2021 21:46:19 (ET). Electronically Signed: Jose Angelo MD at 21:48 EDT , Service support ,
--- NOTE | 2021-04-02 21:19 | EKG12_ITS ---
Test Reason : STROKE Blood Pressure : / mmHG Vent. Rate : 046 BPM Atrial Rate : 300 BPM P-R Int : 000 ms QRS Dur : 138 ms QT Int : 596 ms P-R-T Axes : 000 -76 051 degrees QTc Int : 521 ms Atrial flutter with variable A-V block Right bundle branch block Left anterior fascicular block Bifascicular block Abnormal ECG Confirmed by JED LOBO, DEBORA ([id number]), digital editor VIRGINIE SUAREZ ([id number]) on 04/05/2021 10:00:15 AM Referred By: FARHAN Confirmed By:DEBORA ADKINS MD
--- NOTE | 2021-04-02 21:20 | CT_ITS ---
STUDY: CTA HEAD AND NECK WITH CONTRAST REASON FOR EXAM: Female, 85 years old. Neuro deficit, acute, stroke suspected RADIATION DOSAGE (If Supplied By Facility): CTDIvol = ( 26.56 ) mGy, DLP = ( 580.20 ) mGycm TECHNIQUE: CT angiography was performed with a multi-detector CT scanner. Data acquisition was obtained from the skull base through the vertex following intravenous administration of IV 100mL [id number]-[id number]. MIP images were reconstructed from the axial data set. Post-processing of the angiographic images was performed, with multiplanar reformation and 3D reconstruction. Individualized dose optimization techniques were used for this CT. COMPARISON: No relevant priors. FINDINGS: Normal bilateral petrous carotid arteries. Normal right cavernous carotid artery with a normal supraclinoid bifurcation. Normal left cavernous carotid artery with a normal supraclinoid bifurcation. Normal right A1 segments of the anterior cerebral artery. Normal left A1 segments of the anterior cerebral artery. Normal intact anterior communicating artery (ACOM). Normal bilateral A2 segments of the anterior cerebral arteries. Normal right M1 and M2 segments of the middle cerebral arteries, with a normal M1 bifurcation. Normal left M1 and M2 segments of the middle cerebral arteries, with a normal M1 bifurcation. Normal right posterior communicating artery (PCOM). Normal left posterior communicating artery (PCOM). Normal bilateral vertebral arteries. Normal basilar artery with a normal basilar bifurcation. The visualized bilateral superior cerebellar (SCA) arteries are normal. Normal bilateral P1, P2 and visualized P3 segments of the posterior cerebral arteries. There is no demonstrated aneurysm of the nulato of [place]. There is no demonstrated abnormality of the visualized brain. AORTIC ARCH: There is atherosclerotic calcific plaque formation of the aortic arch and great vessels arising from the aortic arch, without a hemodynamically significant stenosis. There is a normal origin of the brachiocephalic, left common carotid, and left subclavian arteries. 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 RIGHT CAROTID ARTERIES: Normal right common carotid artery (CCA). Normal right common carotid bulb. There is moderate atherosclerotic plaque formation of the origin of the right internal carotid artery with an estimated stenosis of 50-69% stenosis. Normal visualized cervical portion of the right internal carotid artery. Normal origin of the right external carotid artery (ECA). LEFT CAROTID ARTERIES: Normal left common carotid artery (CCA). Normal left common carotid bulb. There is moderate atherosclerotic plaque formation of the origin of the left internal carotid artery with an estimated stenosis of 50-69% stenosis. Normal visualized cervical portion of the left internal carotid artery. Normal origin of the left external carotid artery (ECA). VERTEBRAL ARTERIES: Normal bilateral vertebral arteries. CT/STROKE CTA Head AND Neck W/Con IMPRESSION: Atherosclerotic calcific plaques at the origins of the right and left internal carotid artery causing between 50 and 69% narrowing. N.B. : The above Results were Read Back by Jose Angelo MD to [facility] and understanding confirmed on 04/02/2021 21:55:11 (ET). Electronically Signed: Jose Angelo MD at 21:56 EDT , Service support ,
--- NOTE | 2021-04-02 21:22 | EDS_ITS ---
HPI History of Present Illness Chief Complaint: Alt LOC Informant: spouse/S.O. and family Narrative Narrative: Patient was found to be not responsive at about 830. It sounds like she was last known well sometime between 6 and 7 PM. She had eaten dinner. She has a history of heart she is on medications for this. They deny any blood thinners. Our records show that she is on metoprolol. She is also on eyedrops. No history is obtainable through patient as she has significant decreased responsiveness. She evidently has vomited. There is no report of trauma. [facility] Medical History (Updated 04/02/21 @ 23:[address] Hao Epps MD) CVA (cerebral vascular accident) HTN (hypertension) Home Medications metoprolol succinate [Toprol Xl] 50 mg PO BID 08/19/18 [History Last Taken 06/11/19] brinzolamide-brimonidine 1 drp EACH EYE BID 06/11/19 [History Last Taken 06/11/19] ofloxacin 1 drp RIGHT EYE 4X/DAY 06/11/19 [History Last Taken 06/11/19] prednisolone acetate 1 drp RIGHT EYE 4X/DAY 06/11/19 [History Last Taken 06/11/19] atorvastatin 80 mg PO DAILY 04/02/21 [History Last Taken Unknown] hydrochlorothiazide 12.5 mg PO DAILY 04/02/21 [History Last Taken Unknown] metformin 250 mg PO DAILY 04/02/21 [History Last Taken Unknown] Allergy/AdvReac Type Severity Reaction Status Date / Time No Known Allergies Allergy Verified 04/02/21 21:30 unable to obtain unable to obtain Social History Smoking Status: Never smoker ROS ROS ED Review of Systems ROS Unobtainable: other Details: Unable to obtain review of systems beyond what is in the history of present illness. Patient is completely nonverbal and nonresponding. EXAM Physical Exam Const Vital Signs: 04/02/21 21:16 04/02/21 21:18 04/02/21 21:19 Temperature 97.6 F L 97.6 F L Temperature Source Temporal Temporal Pulse Rate 59 L 59 L 51 L Respiratory Rate 18 16 16 Blood Pressure 211/69 H 130/75 H Blood Pressure Mean 116 93 Blood Pressure Source Blood Pressure Position Blood Pressure Location Pulse Ox 95 97 96 Oxygen Delivery Method Room Air Room Air Room Air Oxygen Flow Rate (L/min) 04/02/21 21:28 04/02/21 21:30 04/02/21 21:32 Temperature Temperature Source Pulse Rate 55 L Respiratory Rate 17 Blood Pressure 213/71 H 135/78 H Blood Pressure Mean 118 97 Blood Pressure Source Blood Pressure Position Blood Pressure Location Pulse Ox 95 Oxygen Delivery Method Room Air Nasal Cannula Oxygen Flow Rate (L/min) 4 04/02/21 21:45 04/02/21 21:55 04/02/21 22:00 Temperature 97.2 F L Temperature Source Temporal Pulse Rate 50 L 48 L 50 L Respiratory Rate 13 12 15 Blood Pressure 186/60 H 194/61 H 168/50 H Blood Pressure Mean 102 105 89 Blood Pressure Source Monitor Blood Pressure Position Semi-Fowlers Blood Pressure Location Left Arm Pulse Ox 95 96 95 Oxygen Delivery Method Nasal Cannula Venturi Mask Nasal Cannula Oxygen Flow Rate (L/min) 4 4 4 04/02/21 22:02 04/02/21 22:07 04/02/21 22:10 Temperature Temperature Source Pulse Rate Respiratory Rate Blood Pressure 186/60 H 188/72 H 168/50 H Blood Pressure Mean 102 110 Blood Pressure Source Monitor Monitor Blood Pressure Position Semi-Fowlers Semi-Fowlers Blood Pressure Location Left Arm Pulse Ox Oxygen Delivery Method Oxygen Flow Rate (L/min) 04/02/21 22:15 04/02/21 22:30 04/02/21 22:45 Temperature 97.5 F L 97.3 F L 97.4 F L Temperature Source Temporal Temporal Temporal Pulse Rate 53 L 45 L 45 L Respiratory Rate 15 14 13 Blood Pressure 146/47 H 113/93 H Blood Pressure Mean 80 99 Blood Pressure Source Monitor Monitor Monitor Blood Pressure Position Semi-Fowlers Semi-Fowlers Semi-Fowlers Blood Pressure Location Left Arm Left Arm Left Arm Pulse Ox 96 96 97 Oxygen Delivery Method Nasal Cannula Nasal Cannula Oxygen Flow Rate (L/min) 4 2 2 04/02/21 23:00 Temperature 97.3 F L Temperature Source Temporal Pulse Rate 46 L Respiratory Rate 15 Blood Pressure 162/50 H Blood Pressure Mean 87 Blood Pressure Source Monitor Blood Pressure Position Semi-Fowlers Blood Pressure Location Left Arm Pulse Ox 98 Oxygen Delivery Method Nasal Cannula Oxygen Flow Rate (L/min) 2 Positive well nourished and well developed General Appearance ED: well developed HEENT atraumatic; Negative for trauma Nose: other Other Details: She does have some mild right-sided facial droop. Eyes Eyes Narrative: Pupils do appear to be reactive slightly. They are about 3 mm. She has a fixed gaze deviation to the left. I do not get any response with confrontation from any angle. Neck supple Resp normal respiratory effort Cardio Rate: regular rate Rhythm: regular rhythm GI Negative for normal to inspection, nondistended, normoactive bowel sounds Extremity normal to inspection General Extremety ED: Negative for deformity, edema or tenderness General Extremity: Negative for deformity or edema Neuro Neuro Narrative: See NIH stroke scale. Patient is essentially nonresponsive. She will open her eyes. There is no indication of looking around the room. Gaze is fixed to the left. She does move her left arm quite a bit. Minimal motion of her left leg and right leg. No motion of her right arm. NIH stroke scale of 27. Psych Attention / Concentration: other Skin Rashes: no rashes STROKE Vital Signs/Narrative: Vital Signs Temp Pulse Resp BP Pulse Ox 04/02/21 23:00 97.3 F L 46 L 15 162/50 H 98 04/02/21 22:45 97.4 F L 45 L 13 113/93 H 97 04/02/21 22:30 97.3 F L 45 L 14 146/47 H 96 04/02/21 22:15 97.5 F L 53 L 15 96 04/02/21 22:10 168/50 H 04/02/21 22:07 188/72 H 04/02/21 22:02 186/60 H 04/02/21 22:00 97.2 F L 50 L 15 168/50 H 95 04/02/21 21:55 48 L 12 194/61 H 96 04/02/21 21:45 50 L 13 186/60 H 95 04/02/21 21:32 135/78 H 04/02/21 21:30 55 L 17 213/71 H 95 04/02/21 21:19 51 L 16 130/75 H 96 04/02/21 21:18 97.6 F L 59 L 16 211/69 H 97 04/02/21 21:16 97.6 F L 59 L 18 95 NIHSS Initial: 1a Level of Consciousness: 2 1b LOC Questions (Score 2 if aphasic/stupor): 2 1c LOC Commands (Only score 1st attempt): 0 2 Best Gaze (If aphasic, use reflexive mvmts.): 2 3 Visual: 2 4 Facial Palsy: 2 5 Motor Arm Right (UN = amputation/fusion): 4 5 Motor Arm Left: 0 6 Motor Leg Right: 3 6 Motor Leg Left: 2 7 Limb ataxia (Only + if out of proportion): 0 8 Sensory (Aphasia/stupor=0 or 1, coma=2): 1 9 Best Language: 3 10 Dysarthria (mute, coma=2, intubated=UN): 2 11 Extinction and Inattention (only scored if +): 2 Total Score: 27 MDM MDM MDM Narrative Medical decision making narrative: We had the teleneurology evaluation. They have seen the patient. They are looking at CTA. They will have all images but they do see indications of likely large vessel occlusion. With her significant symptoms I do recommend TPA at this point. They are aware that she has new onset atrial flutter. I have placed TPA orders. Her CT shows no acute process per radiology. They just called me a moment ago. We are making arrangements to fly the patient down to [facility] if her CTA shows a large vessel occlusion as she may need a rescue procedure. Her initial blood pressure was relatively high systolic but she is now down to 135/78. CTA did not show a large vessel occlusion. Her blood pressure did come down. She was transiently placed on nicardipine. She is off of that now and her blood pressure is 161 systolic. TPA is given. We discussed risk benefits with the family as did the neurologist through teleneurology. I rechecked the patient with about 40% of her TPA in. She is moving her right lower extremity much better. She is actually getting some motion of her right upper extremity. She is still not speaking or responding significantly to us. However, this is showing some improvement. Her troponin was mildly elevated. Other blood work shows no marked abnormality. We got a more complete med list and found out the patient also does have some history of diabetes and is on Metformin. I have hospitalist on page. Lab Data Labs: Laboratory Results - last 24 hr 04/02/21 04/02/21 04/02/21 21:20 21:20 21:25 WBC 10.1 RBC 4.11 L Hgb 11.6 L Hct 37.2 MCV 90.5 MCH 28.2 MCHC 31.2 L RDW Std Deviation 45.1 H RDW Coeff of Azeb 13.6 Plt Count 449 MPV 8.9 Immature Gran % (Auto) 0.500 Neut % (Auto) 62.1 Lymph % (Auto) 25.2 [place]cl[place] % (Auto) 8.7 Eos % (Auto) 3.1 Baso % (Auto) 0.4 Absolute Neuts (auto) 6.3 Absolute Lymphs (auto) 2.55 Nucleated RBC % 0 PT 15.2 H INR 1.3 APTT 27.6 Sodium 138 Potassium 3.9 Chloride 103 Carbon Dioxide 28.0 Anion Gap 7 BUN 30 H Creatinine 1.08 H Estim Creat Clear Calc 31.22 Est GFR (MDRD) Af Amer 62 Est GFR (MDRD) Non-Af 52 L BUN/Creatinine Ratio 27.8 H Glucose 161 H Calcium 9.4 Troponin I High Sens 98.3 H* Radiography Diagnostic Testing: Radiology Impression Brain CT 04/02/21 21:19 IMPRESSION: Chronic involutional changes of the brain. 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 N.B. : The above Results were Read Back by Jose Angelo MD to [facility] EPPS and understanding confirmed on 04/02/2021 21:46:19 (ET). Electronically Signed: Jose Angelo MD at 21:48 EDT , Service support , ADDENDUM: 04/02/21 2155 IMPRESSION: Chronic involutional changes of the brain. 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 N.B. : The above Results were Read Back by Jose Angelo MD to [facility] EPPS and understanding confirmed on 04/02/2021 21:46:19 (ET). Electronically Signed: Jose Angelo MD at 21:48 EDT , Service support , Head/Neck CTA 04/02/21 21:20 IMPRESSION: Atherosclerotic calcific plaques at the origins of the right and left internal carotid artery causing between 50 and 69% narrowing. N.B. : The above Results were Read Back by Jose Angelo MD to [facility] EP[facility] and understanding confirmed on 04/02/2021 21:55:11 (ET). Electronically Signed: Jose Angelo MD at 21:56 EDT , Service support , ADDENDUM: 04/02/212202 IMPRESSION: Atherosclerotic calcific plaques at the origins of the right and left internal carotid artery causing between 50 and 69% narrowing. N.B. : The above Results were Read Back by Jose Angelo MD to [facility] EP[facility] and understanding confirmed on 04/02/2021 21:55:11 (ET). Electronically Signed: Jose Angelo MD at 21:56 EDT , Service support , Stroke Documentation Questions Stroke Team Activated: Yes Reviewed Inclusion/Exclusion criteria: Yes Was Patient considered for Endovascular Intervention?: Yes IV Alteplase (t-PA) Administered: Yes Critical Care Time Critical Care Time: Yes Critical care time (excluding procedures): 30-74 minutes and - (Patient is a critical care time of 45 minutes. We had multiple visits with the patient. I rechecked her. We have discussed the case with the neurologist as well as the admitting physician. I have had multiple discussions with the family. Multiple discussions with staff. We have adjusted medica) Discharge Plan Dx/Rx/DC Orders Clinical Impression: Acute CVA (cerebrovascular accident), New onset atrial flutter, Elevated troponin Disposition Disposition: Acute Care Hospital [facility]
[2021-04-02 21:31] LABS: Absolute Lymphocyte Count 2.55 X10^3/uL (0.83-4.51); Absolute Neutrophil Count 6.3 X10^3/uL (2.0-7.7); Basophil# 0.04 X10^3/uL; Basophil% 0.4 % (0-1); Eosinophil# 0.31 X10^3/uL; Eosinophils% 3.1 % (0-5); Hematocrit 37.2 % (37-47); Hemoglobin 11.6 g/dL (12.0-15.0); Lymphocyte # 2.55 X10^3/ul (0.83-4.51); Lymphocyte % 25.2 % (19-41); Mean Corp Hgb Conc 31.2 g/dL (32-36); Mean Corpuscular Hgb 28.2 pg (27.0-32.0); Mean Corpuscular Volume 90.5 fL (81-99); Mean Platelet Vol. 8.9 fl (6.2-12.0); Monocyte# 0.88 X10^3/uL; Monocyte% 8.7 % (0-10); NRBC Flagged by Analyzer 0 % (0-5); Neutrophil % 62.1 % (47-70); Platelet Count 449 K/mm3 (150-450); RBC Distribution Width CV 13.6 % (11.6-14.6); RBC Distribution Width SD 45.1 fl (35.1-43.9); Red Blood Count 4.11 M/mm3 (4.2-5.4); White Blood Count 10.1 K/mm3 (4.4-11.0)
[2021-04-02] MEDS: Labetalol (Prefilled) 20 MG/4 ML IV (21:49)
[2021-04-02 22:02] LABS: International Normalized Ratio 1.3; Prothrombin Time (Protime)PT. 15.2 SECONDS (11.7-14.9)
[2021-04-02] MEDS: Nicardipine HCl-0.9% Sod Chlor 20 MG/200 ML IV.SOLN 50 MG IV (22:02)
[2021-04-02 22:03] LABS: Partial Thromboplast Time 27.6 Seconds (24.1-36.2)
[2021-04-02 22:04] LABS: Anion Gap 7 (5-15); BUN 30 mg/dL (7-18); BUN/Creat Ratio 27.8 RATIO (10-20); Calcium,Total 9.4 mg/dL (8.5-10.1); Chloride 103 mmol/L (98-107); Creatinine, Serum 1.08 mg/dL (0.55-1.02); EST Glomerular Filtration Rate 52 mL/min (>60); Est Glom Filt Rate - Afr Amer 62 mL/min (>60); Estimated Creatinine Clearance 31.22 ml/min; Glucose 161 mg/dL (74-106); Potassium 3.9 mmol/L (3.5-5.1); Sodium Level 138 mmol/L (136-145); Troponin-I HS 98.3 pg/mL (3.0-53.7)
--- NOTE | 2021-04-02 22:40 | RAD_ITS ---
EXAM: XR CHEST, 1 VIEW : 1937 CLINICAL INDICATION: Neuro deficit, acute, stroke suspected TECHNIQUE: Frontal view of the chest. This report was created using [employer] report generation technology. COMPARISON: 06/11/2019 FINDINGS: LUNGS AND PLEURAL SPACES: Unremarkable. No consolidation or edema. No pneumothorax. No effusion. HEART: Unremarkable. Cardiac silhouette not enlarged. MEDIASTINUM: Central airways and mediastinal contour are unremarkable. BONES/JOINTS: Unremarkable. SOFT TISSUES: Unremarkable. RAD/Chest 1 View IMPRESSION: No radiographic evidence of acute cardiopulmonary disease. at 2327 Reported and signed by: Bautista Warner MD Electronically Signed: Bautista Warner MD at 23:26 EDT Tel , Service support ,
--- NOTE | 2021-04-02 22:57 | ED.RN ---
TPA HELD UNTIL BLOOD PRESSURES WITHIN PARAMETERS, LABETALOL AND CARDENE ADMINISTERED.
--- NOTE | 2021-04-02 22:59 | ED.RN ---
PLEASE CALL SON EVERTON WITH UPDATES, HE WILL NOTIFY REST OF FAMILY. CAN CALL EITHER SPOUSE OZZIE OR [facility]ERT[facility] WITH QUESTIONS. OZZIE [phone] [facility] [phone]
--- NOTE | 2021-04-02 23:33 | PCM.HP.STD ---
[facility] - General General Date of Admission: 04/02/21 Date of Service: 04/02/21 Chief Complaint: Right-sided weakness and altered mental status [facility] Narrative MARIANA SETH, is a 85 F with a significant history of CVA without any residual weakness; hypertension and hyperlipidemia who presents emergency department with right-sided weakness and altered mental status. Her last known well was about 2 hours and 15 minutes before presentation. Reportedly patient's son and uwqihozu-ur-oit walked in patient's home and realized that patient's was having right-sided weakness and was not answering questions. Per patient's patient had a dinner and had no symptoms at that time. Associated with her symptoms is vomiting. At the emergent department patient was found to have A flutter and previous EKG did not show a flutter. However patient's son and hupkjzlq-bm-jpj reported that patient have a little bit of irregular heartbeat and murmur. History was taken from emergency department doctor; as well as patient's son and dicxcxfv-lo-ziw over the phone. [facility] Medical History CVA (cerebral vascular accident) HTN (hypertension) Home Medications metoprolol succinate [Toprol Xl] 50 mg PO BID 08/19/18 [History Last Taken 06/11/19] brinzolamide-brimonidine 1 drp EACH EYE BID 06/11/19 [History Last Taken 06/11/19] ofloxacin 1 drp RIGHT EYE 4X/DAY 06/11/19 [History Last Taken 06/11/19] prednisolone acetate 1 drp RIGHT EYE 4X/DAY 06/11/19 [History Last Taken 06/11/19] atorvastatin 80 mg PO DAILY 04/02/21 [History Last Taken Unknown] hydrochlorothiazide 12.5 mg PO DAILY 04/02/21 [History Last Taken Unknown] metformin 250 mg PO DAILY 04/02/21 [History Last Taken Unknown] Allergy/AdvReac Type Severity Reaction Status Date / Time No Known Allergies Allergy Verified 04/02/21 21:30 Family History Other Cancer unable to obtain (Unable to obtain secondary to encephalopathy. Son and cjfefvkt-hq-hqz who history was taken from denies any knowledge of surgery. denies knowledge of) Social History Smoking Status: Never smoker ROS Review of Systems ROS Unobtainable: due to encephalopathy and other Details: History was obtained from son and mstyhpht-en-ylc (over the phone)who does not live with patient and could provide only limited history; which is as in HPI. Vital Signs Vital Signs Vital Signs: 04/02/21 21:16 04/02/21 21:18 04/02/21 21:19 Temperature 97.6 F L 97.6 F L Temperature Source Temporal Temporal Pulse Rate 59 L 59 L 51 L Respiratory Rate 18 16 16 Blood Pressure 211/69 H 130/75 H Blood Pressure Mean 116 93 Blood Pressure Source Blood Pressure Position Blood Pressure Location Pulse Ox 95 97 96 Oxygen Delivery Method Room Air Room Air Room Air Oxygen Flow Rate (L/min) 04/02/21 21:28 04/02/21 21:30 04/02/21 21:32 Temperature Temperature Source Pulse Rate 55 L Respiratory Rate 17 Blood Pressure 213/71 H 135/78 H Blood Pressure Mean 118 97 Blood Pressure Source Blood Pressure Position Blood Pressure Location Pulse Ox 95 Oxygen Delivery Method Room Air Nasal Cannula Oxygen Flow Rate (L/min) 4 04/02/21 21:45 04/02/21 21:55 04/02/21 22:00 Temperature 97.2 F L Temperature Source Temporal Pulse Rate 50 L 48 L 50 L Respiratory Rate 13 12 15 Blood Pressure 186/60 H 194/61 H 168/50 H Blood Pressure Mean 102 105 89 Blood Pressure Source Monitor Blood Pressure Position Semi-Fowlers Blood Pressure Location Left Arm Pulse Ox 95 96 95 Oxygen Delivery Method Nasal Cannula Venturi Mask Nasal Cannula Oxygen Flow Rate (L/min) 4 4 4 04/02/21 22:02 04/02/21 22:07 04/02/21 22:10 Temperature Temperature Source Pulse Rate Respiratory Rate Blood Pressure 186/60 H 188/72 H 168/50 H Blood Pressure Mean 102 110 Blood Pressure Source Monitor Monitor Blood Pressure Position Semi-Fowlers Semi-Fowlers Blood Pressure Location Left Arm Pulse Ox Oxygen Delivery Method Oxygen Flow Rate (L/min) 04/02/21 22:15 04/02/21 22:30 04/02/21 22:45 Temperature 97.5 F L 97.3 F L 97.4 F L Temperature Source Temporal Temporal Temporal Pulse Rate 53 L 45 L 45 L Respiratory Rate 15 14 13 Blood Pressure 146/47 H 113/93 H Blood Pressure Mean 80 99 Blood Pressure Source Monitor Monitor Monitor Blood Pressure Position Semi-Fowlers Semi-Fowlers Semi-Fowlers Blood Pressure Location Left Arm Left Arm Left Arm Pulse Ox 96 96 97 Oxygen Delivery Method Nasal Cannula Nasal Cannula Oxygen Flow Rate (L/min) 4 2 2 04/02/21 23:00 04/02/21 23:20 Temperature 97.3 F L 97.3 F L Temperature Source Temporal Temporal Pulse Rate 46 L 48 L Respiratory Rate 15 14 Blood Pressure 162/50 H 171/55 H Blood Pressure Mean 87 93 Blood Pressure Source Monitor Blood Pressure Position Semi-Fowlers Blood Pressure Location Left Arm Pulse Ox 98 98 Oxygen Delivery Method Nasal Cannula Nasal Cannula Oxygen Flow Rate (L/min) 2 2 Weight Weight: 70.9 kg Body Mass Index (BMI) 28.5 Physical Exam Narrative Physical exam: General: Well-nourished, well-developed. Head: Normocephalic, atraumatic, no tenderness Eyes: PERRLA. Does not follow commands to do EOMI ENT, no trauma, moist mucous membranes, no rhinorrhea Neck: Nontender, no spinal tenderness, deformities, step-off CVS: S1, S2 present. Respiratory no acute distress, clear to auscultation bilaterally, chest wall nontender, no wheezing Abdomen: Soft, nontender, nondistended, normal bowel sounds, no masses : Deferred Back: Nontender, no CVA tenderness, no midline spinal tenderness, deformities, step-offs Extremities: Noticed not to move right leg. Occasionally moves right arm moderately Skin: Normal color, no trauma, abrasions Neuro: Hypo alert, not following commands. Deep tendon reflex not hyperreflexia throughout. Not following commands to do dysmetria test. Eyes deviated to the left Psychiatry: Restless. Results Lab / Micro Data Result Diagrams: 04/02/21 21:20 04/02/21 21:20 Labs: Laboratory Results - last 24 hr 04/02/21 21:20: WBC 10.1, RBC 4.11 L, Hgb 11.6 L, Hct 37.2, MCV 90.5, MCH 28.2, MCHC 31.2 L, RDW Std Deviation 45.1 H, RDW Coeff of Azeb 13.6, Plt Count 449, MPV 8.9, Immature Gran % (Auto) 0.500, Neut % (Auto) 62.1, Lymph % (Auto) 25.2, [place] % (Auto) 8.7, Eos % (Auto) 3.1, Baso % (Auto) 0.4, Absolute Neuts (auto) 6.3, Absolute Lymphs (auto) 2.55, Nucleated RBC % 0 04/02/21 21:20: Sodium 138, Potassium 3.9, Chloride 103, Carbon Dioxide 28.0, Anion Gap 7, BUN 30 H, Creatinine 1.08 H, Estim Creat Clear Calc 31.22, Est GFR (MDRD) Af Amer 62, Est GFR (MDRD) Non-Af 52 L, BUN/Creatinine Ratio 27.8 H, Glucose 161 H, Calcium 9.4, Troponin I High Sens 98.3 H* 04/02/21 21:25: PT 15.2 H, INR 1.3, APTT 27.[address] 04/02/21 21:19 IMPRESSION: Chronic involutional changes of the brain. 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 N.B. : The above Results were Read Back by Jose Angelo MD to [facility] EP[facility] and understanding confirmed on 04/02/2021 21:46:19 (ET). Electronically Signed: Jose Angelo MD at 21:48 EDT , Service support , ADDENDUM: 04/02/21 2155 IMPRESSION: Chronic involutional changes of the brain. 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 N.B. : The above Results were Read Back by Jose Angelo MD to [facility] EPPS and understanding confirmed on 04/02/2021 21:46:19 (ET). Electronically Signed: Jose Angelo MD at 21:48 EDT , Service support , Head/Neck CTA 04/02/21 21:20 IMPRESSION: Atherosclerotic calcific plaques at the origins of the right and left internal carotid artery causing between 50 and 69% narrowing. N.B. : The above Results were Read Back by Jose Angelo MD to [facility] EPPS and understanding confirmed on 04/02/2021 21:55:11 (ET). Electronically Signed: Jose Angelo MD at 21:56 EDT , Service support , ADDENDUM: 04/02/21 2203 IMPRESSION: Atherosclerotic calcific plaques at the origins of the right and left internal carotid artery causing between 50 and 69% narrowing. N.B. : The above Results were Read Back by Jose Angelo MD to [facility] EPPS and understanding confirmed on 04/02/2021 21:55:11 (ET). Electronically Signed: oJse Angelo MD at 21:56 EDT , Service support , Chest X-Ray 04/02/21 22:40 IMPRESSION: No radiographic evidence of acute cardiopulmonary disease. at 2327 Reported and signed by: Bautista Warner MD Electronically Signed: Bautista Warner MD at 23:26 EDT Tel , Service support , Assessment & Plan Assessment/Plan (1) Acute CVA (cerebrovascular accident): (2) Atrial flutter: (3) Elevated troponin: PLAN: Acute encephalopathy secondary to acute stroke Impression of head CT by radiology:Chronic involutional changes of the brain. 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 Actual CT head image was independently interpreted and I radiologist interpretation Radiologist impression of head and neck CTA: Atherosclerotic calcific plaques at the origins of the right and left internal carotid artery causing between 50 and 69% narrowing -Check Hba1c, Lipid level Physical therapy, occupational therapy and speech therapy to work with patient. N.p.o. until encephalopathy improves and patient passes bedside swallow eval. Received a TPA bolus and drip at emergent department. No aspirin for at least 24 hours. No of p.o. meds because of encephalopathy. Home statin held. Control blood pressure per protocol for TPA. Cardizem drip and as needed labetalol as necessary. MRI 24 hours after TPA was completed. Initial plan was to transfer to [facility] if there was a large vessel occlusion. However because there was no large vessel occlusion a decision was made by the Emergency department doctor and telemetry neurologist to keep patient at the hospital. Consider further inpatient neurology consult as appropriate. Urinalysis ordered. Impression of chest x-ray by radiology: No acute cardiopulmonary process noted. Actual chest x-ray image was independently interpreted. Mild haziness around the middle and lower lung sotelo surrounding the heart. No reported fever or malaise before her acute encephalopathy and right-sided weakness with eye deviation to the left. Unlikely pneumonia. A flutter Noted to have a flutter on EKG at the emergent department. Review of EKG on 06/11/2019 and telemetry strip on 06/11/2019 did not show a flutter. However with son and utsgjoud-xs-jnc stating that patient has a little bit of regular rhythm is unclear whether this a flutter is new. Consider anticoagulation when appropriate. Of note with TPA patient developed some mild hematuria. Hold of rate controlling drug for better blood pressure control. Last echocardiogram on file was on 06/11/2019. Echocardiogram at that time showed ejection fraction of 65%. Mild diffuse mitral valve thickening. Severe mitral annular calcification extending to the posterior leaflet. Moderate mitral valve stenosis. Mild mitral valve insufficiency. Right ventricular systolic pressure was 51 mmHg indicating moderate pulmonary hypertension. Mild to moderate aortic stenosis. Check TSH; magnesium and get an echocardiogram. Potassium 3.9. Normal saline with 10 mEq potassium at 75 mL/h ordered. Hyperglycemia Patient on low-dose of Metformin 250 mg daily. Patient with mild hyperglycemia on presentation. Patient son is unsure whether his mom has diabetes. Accu-Chek QA CHS and A1c ordered. Elevated troponin Her high sensitivity troponin is mildly elevated. Likely secondary to stroke. Trend. Elevated blood pressure Her blood pressure is not within goal. Home p.o. blood pressure medication held. Cardizem drip as needed and labetalol as needed as above. At the emergency department patient was started on Cardizem drip to maintain blood pressure per TPA goals. DVT prophylaxis SCD ordered Charges/Coding Visit Charges Inpatient E&M: 79759 Init Hosp L3
[2021-04-02 23:55] LABS: Bedside Glucose 178 mg/dL (70-110)
[2021-04-03] VITALS (49 sets, daily range): BP systolic 135–195; BP diastolic 48–110; PULSE 44–63; RESP 10–20; TEMP 35.9–37.4; O2SAT 92–100; BMI 28.1
--- NOTE | 2021-04-03 00:35 | ECHOD_ITS ---
Reason For Study: TIA/CVA Procedure This was a 2D Doppler, Color Flow transthoracic echocardiogram. Pt would not allow for echo to be finished. Exam performed portable in ICU/CCU. Left Ventricle Normal LV size. Moderate to severe concentric left ventricular hypertrophy. Left ventricular systolic function is normal. The estimated ejection fraction is 65 %. Transmitral diastolic flow velocities suggest moderate (stage 2) diastolic dysfunction (pseudonormal pattern). No regional wall motion abnormalities noted. Right Ventricle Normal RV size. Normal systolic function. Atria The left atrium is moderately enlarged. The right atrium is mildly enlarged. No doppler evidence for ASD. Mitral Valve There is severe mitral annular calcification. Extension of the mitral annular calcification on the base of the posterior mitral valve leaflet. Mild-Moderate (1-2+) mitral valve insufficiency. Tricuspid Valve Normal tricuspid valve. Mild tricuspid valve insufficiency. Right ventricular systolic pressure estimated to be 36 mmHg. Aortic Valve Trisinus/trileaflet aortic valve. Mild diffuse aortic valve thickening. Mild diffuse aortic valve calcification. Mild to moderate aortic stenosis. Pulmonic Valve The pulmonic valve is not well visualized. Great Vessels Calcified aortic root. Pericardium/Pleural No pericardial effusion. MMode/2D Measurements & Calculations LVIDd: 4.0 cm IVSd: 1.4 cm LVOT diam: 2.0 cm LVIDs: 2.8 cm LVPWd: 1.5 cm LVOT area: 3.0 cm2 RVDd: 3.3 cm FS: 28.8 % LAV(MOD-bp): 116.4 ml LVAd ap4: 28.4 cm2 SV(MOD-sp4): 61.5 ml LAV(MOD-bp) Indexed: 69.6 ml/m2 LVLd ap4: 7.7 cm LAV(MOD-sp2): 154.0 ml EDV(MOD-sp4): 84.4 ml LAV(MOD-sp4): 86.4 ml EDV(sp4-el): 89.0 ml LVAs ap4: 12.9 cm2 LVLs ap4: 6.3 cm ESV(MOD-sp4): 22.9 ml ESV(sp4-el): 22.4 ml EF(MOD-sp4): 72.9 % EF(sp4-el): 74.8 % SV(sp4-el): 66.6 ml LA A4 area: 27.6 cm2 RA A4 area: 21.7 cm2 Time Measurements MV dec time: 0.24 sec Doppler Measurements & Calculations MV E max eran: 192.8 cm/sec Lat Peak E' Eran: 4.3 cm/sec Med Peak E' Eran: 3.5 cm/sec MV A max eran: 82.2 cm/sec E/E' lat: 45.3 E/E' med: 55.3 MV E/A: 2.3 Ao V2 max: 268.1 cm/sec LV V1 max: 94.4 cm/sec SV(LVOT): 68.4 ml Ao max P.8 mmHg LV V1 max P.6 mmHg Ao V2 mean: 183.9 cm/sec LV V1 mean P.8 mmHg Ao mean P.0 mmHg LV V1 mean: 64.1 cm/sec Ao V2 VTI: 64.2 cm LV V1 VTI: 22.8 cm FADUMO(I,D): 1.1 cm2 FADUMO(V,D): 1.1 cm2 TR max eran: 285.8 cm/sec TR max P.7 mmHg ECHO/Echo Complete Interpretation Summary Left ventricular systolic function is normal. The estimated ejection fraction is 65 %. Moderate to severe concentric left ventricular hypertrophy. The left atrium is moderately enlarged. The right atrium is mildly enlarged. There is severe mitral annular calcification. Extension of the mitral annular calcification on the base of the posterior mitr al valve leaflet. Mild-Moderate (1-2+) mitral valve insufficiency. Mild tricuspid valve insufficiency. Mild to moderate aortic stenosis. Calcified aortic root. Right ventricular systolic pressure estimated to be 36 mmHg. Comment: Transthoracic echocardiogram from 06-12-2019 reported a bubble contrast study negative for right to left interatrial shunt. Ordering Physician: Korey Ruff Referring Physician: DEBBY SALGADO Performed By: Nkechi Gaytan, RDFRIEDA, RVT
--- NOTE | 2021-04-03 00:45 | CT_ITS ---
We are attempting to reach an attending provider to discuss findings. An addendum with communication details will be sent when the communication is complete. EXAM: CT HEAD WITHOUT INTRAVENOUS CONTRAST : 1935 CLINICAL INDICATION: change in NIH TECHNIQUE: Multiple axial images were obtained of the head without intravenous contrast. This CT exam was performed using one or more of the following dose reduction techniques: automated exposure control, adjustment of the mA and/or kV according to patient size, and/or use of iterative reconstruction technique. This report was created using [employer] report generation technology. COMPARISON: 04/02/2021 FINDINGS: BRAIN AND EXTRA-AXIAL SPACES: There is encephalomalacia in the right parietal occipital lobe from a remote infarct which is stable. The ventricular system and cortical sulci are at the upper limits of normal in size. There is a remote infarct in the right basal ganglia. There is hypoattenuation in the periventricular white matter. There appears to be subtle effacement of the cortical sulci seen in the distribution of the left middle cerebral artery. There is also a questionable loss of the andrews-white interface possibly representing a developing left MCA infarct. No intra- or extra-axial hemorrhage. No intracranial mass or mass effect. Posterior fossa structures are unremarkable. Basal cisterns are patent. BONES/JOINTS: Unremarkable. No discrete lytic or blastic abnormalities. SINUSES: Unremarkable as visualized. Clear. MASTOID AIR CELLS: Unremarkable. Clear. ORBITS: Visualized globes, extraocular muscles, optic nerves and retrobulbar fat appear unremarkable. CT/Brain/Head without Contrast IMPRESSION: Subtle effacement of the cortical sulci with loss the andrews-white interface in the distribution of the left middle cerebral artery which may represent an acute left MCA infarct. If indicated further evaluation with MRI beneficial. Individualized dose optimization techniques were used for this CT. at 0230 Reported and signed by: Bautista Warner MD Electronically Signed: Bautista Warner MD at 2:29 EDT Tel , Service support ,
[2021-04-03 01:15] LABS: Magnesium 2.3 mg/dL (1.6-2.6)
[2021-04-03 01:30] LABS: Troponin-I HS 99.7 pg/mL (3.0-53.7)
[2021-04-03] MEDS: Nicardipine HCl-0.9% Sod Chlor 20 MG/200 ML IV.SOLN 50 MG IV ×2 (02:25→06:45)
[2021-04-03 02:46] LABS: Mucous, Urine 0 SEEN /hpf (<or=2+); Squamous Epithelial Cells - UA 0 SEEN /hpf (5-10); White Blood Cells 0 SEEN /hpf (0-5)
[2021-04-03 02:47] LABS: Color, Urine Yellow (Yellow); Glucose, Dipstick Normal (Normal); Ketone-Dipstick Negative (Negative); Leukocyte Esterase-Dipstick 25 /ul (Negative); Nitrite-Dipstick Negative (Negative); Occult Blood-Urine 250 /ul (Negative); Protein-Dipstick 100 mg/dl (Negative); Urine Bilirubin Dipstick Negative (Negative); Urine Clarity Sl. Cloudy (Clear); Urine Urobilinogen Normal (Normal)
[2021-04-03 03:00] LABS: Bacteria RARE /hpf (None Seen); Red Blood Cells-Urine > 100 SEEN /hpf (0-5)
[2021-04-03 03:10] LABS: Absolute Lymphocyte Count 0.68 X10^3/uL (0.83-4.51); Absolute Neutrophil Count 9.2 X10^3/uL (2.0-7.7); Basophil# 0.02 X10^3/uL; Basophil% 0.2 % (0-1); Eosinophil# 0.02 X10^3/uL; Eosinophils% 0.2 % (0-5); Hematocrit 35.1 % (37-47); Hemoglobin 11.3 g/dL (12.0-15.0); Lymphocyte # 0.68 X10^3/ul (0.83-4.51); Lymphocyte % 6.6 % (19-41); Mean Corp Hgb Conc 32.2 g/dL (32-36); Mean Corpuscular Hgb 28.7 pg (27.0-32.0); Mean Corpuscular Volume 89.1 fL (81-99); Mean Platelet Vol. 8.8 fl (6.2-12.0); Monocyte# 0.25 X10^3/uL; Monocyte% 2.4 % (0-10); NRBC Flagged by Analyzer 0 % (0-5); Neutrophil # 9.22 X10^3/uL (2.7-7.7); Neutrophil % 90.2 % (47-70); Platelet Count 414 K/mm3 (150-450); RBC Distribution Width CV 13.6 % (11.6-14.6); RBC Distribution Width SD 44.6 fl (35.1-43.9); Red Blood Count 3.94 M/mm3 (4.2-5.4); White Blood Count 10.2 K/mm3 (4.4-11.0)
[2021-04-03 03:35] LABS: ALB/GLOB Ratio 0.8 RATIO (0.9-2.4); AST(SGOT) 18 U/L (15-37); Alanine Aminotransfer ALT/SGPT 19 U/L (13-56); Albumin, Serum 3.4 g/dL (3.2-5.0); Alkaline Phosphatase 42 U/L (45-117); Anion Gap 7 (5-15); BUN 28 mg/dL (7-18); BUN/Creat Ratio 29.7 RATIO (10-20); Calcium,Total 8.5 mg/dL (8.5-10.1); Chloride 102 mmol/L (98-107); Cholesterol 110 mg/dL (200); Creatinine, Serum 0.94 mg/dL (0.55-1.02); EST Glomerular Filtration Rate 60 mL/min (>60); Est Glom Filt Rate - Afr Amer 73 mL/min (>60); Estimated Creatinine Clearance 34.22 ml/min; Globulin 4.1 g/dL (2.2-4.2); Glucose 177 mg/dL (74-106); High Density Lipoprotein 55 mg/dL; Potassium 3.6 mmol/L (3.5-5.1); Protein, Total 7.5 g/dL (6.4-8.2); Sodium Level 138 mmol/L (136-145); Thyroid Stim Hormone (TSH) 1.88 uIU/mL (0.358-3.74); Triglycerides 34 mg/dL; Very Low Density Lipoprotein 7 mg/dL (5-40)
[2021-04-03 03:44] LABS: Troponin-I HS 112.5 pg/mL (3.0-53.7)
[2021-04-03 05:56] LABS: Bedside Glucose 157 mg/dL (70-110)
--- NOTE | 2021-04-03 08:10 | EX.PCM.CONCC ---
Assessment & Plan Assessment/Plan (1) Acute CVA (cerebrovascular accident): PLAN: RECOMMENDATIONS: 1. Discontinue Cardene if feasible. 2. Treat systolic blood pressures in excess of 180 mmHg. 3. Maintain patient n.p.o. 4. Continue routine monitoring post TPA, per protocol. 5. Obtain MRI brain today. 6. CT head 24 hours post TPA administration. 7. PT/OT evaluations tomorrow. 8. Echocardiogram is pending. IMPRESSIONS: 1. Acute CVA status post TPA Clinical concern for acute ischemic CVA given presentation. No large vessel occlusion was identified on CTA. The patient will be continued on routine monitoring per protocol status post TPA administration. Plan to obtain MRI today and follow-up CT head 24 hours post TPA administration. Treat systolic pressures in excess of 180 mmHg. The patient is to remain n.p.o. for now. Speech therapy has been consulted to evaluate the patient. Echocardiogram is currently pending. The patient will require a follow-up neurology consultation after imaging is complete. 2. Atrial flutter/troponin elevation Await results of echocardiogram. Although the patient remains in atrial flutter, her rate is not an issue. 3. Hypertensive emergency The patient presented to the hospital with profoundly elevated blood pressure parameters and altered mentation. She was placed on Cardene overnight. Plan to wean the aforementioned medication as tolerated. This note was generated with [employer] dictation software. It may contain incorrect words, spelling, and punctuation that were not noted in checking the note before signing. HPI Consult Data Date of Consult: 04/03/21 HPI Narrative Reason for Consultation: Acute CVA status post TPA HPI Narrative: The patient is an 85-year-old female, with a history as outlined below, who presented to the emergency department on April 02 with altered mentation and right-sided weakness. The patient does have a history of hypertension and hyperlipidemia. On presentation to the emergency department, the patient was noted to be afebrile but was significantly hypertensive with a blood pressure of 211/69 mmHg. Initial laboratory evaluation revealed no evidence of a leukocytosis. Coagulation profile revealed an INR of 1.3. Chemistry profile was notable for a creatinine of 1.08. Troponin was elevated to 98.3. Urine analysis was unremarkable. Initial head CT revealed chronic involutional changes of the brain along with an old infarction involving the posterior right parietal/occipital lobes. CTA head and neck revealed calcific plaques at the origin of the right and left internal carotid artery causing 50 and 69% narrowing, respectively. Chest x-ray demonstrated no acute cardiopulmonary process. The patient was noted to be in atrial flutter on EKG. [facility] Medical History CVA (cerebral vascular accident) HTN (hypertension) Home Medications metoprolol succinate [Toprol Xl] 50 mg PO BID 08/19/18 [History Last Taken 06/11/19] brinzolamide-brimonidine 1 drp EACH EYE BID 06/11/19 [History Last Taken 06/11/19] ofloxacin 1 drp RIGHT EYE 4X/DAY 06/11/19 [History Last Taken 06/11/19] prednisolone acetate 1 drp RIGHT EYE 4X/DAY 06/11/19 [History Last Taken 06/11/19] atorvastatin 80 mg PO DAILY 04/02/21 [History Last Taken Unknown] hydrochlorothiazide 12.5 mg PO DAILY 04/02/21 [History Last Taken Unknown] metformin 250 mg PO DAILY 04/02/21 [History Last Taken Unknown] Allergy/AdvReac Type Severity Reaction Status Date / Time No Known Allergies Allergy Verified 04/02/21 21:30 Family History Other Cancer Social History Smoking Status: Never smoker ROS Review of Systems ROS Unobtainable: due to mental status Physical Exam Const no apparent distress General Appearance: lethargic HEENT normocephalic and head/scalp atraumatic Eyes Eyes Narrative: Right ptosis Neck supple General: trachea midline Resp normal respiratory effort Auscultation: Negative for rales, rhonchi or wheezes Cardio Rate: bradycardia Rhythm: abnormal rhythm GI normal to inspection, nondistended, normoactive bowel sounds Extremity no clubbing, cyanosis or edema Skin no rashes or lesions noted Neuro Neuro Narrative: Flaccid right-sided paralysis. Moves left upper and lower extremity spontaneously. Nonverbal. Psych Mood & Affect: flat affect Lab / Micro Data Result Diagrams: 04/03/21 03:00 04/03/21 03:00 Labs: Laboratory Results - last 24 hr 04/02/21 21:19: POC Glucose 178 H 04/02/21 21:20: WBC 10.1, RBC 4.11 L, Hgb 11.6 L, Hct 37.2, MCV 90.5, MCH 28.2, MCHC 31.2 L, RDW Std Deviation 45.1 H, RDW Coeff of Azeb 13.6, Plt Count 449, MPV 8.9, Immature Gran % (Auto) 0.500, Neut % (Auto) 62.1, Lymph % (Auto) 25.2, Cameron % (Auto) 8.7, Eos % (Auto) 3.1, Baso % (Auto) 0.4, Absolute Neuts (auto) 6.3, Absolute Lymphs (auto) 2.55, Nucleated RBC % 0 04/02/21 21:20: Sodium 138, Potassium 3.9, Chloride 103, Carbon Dioxide 28.0, Anion Gap 7, BUN 30 H, Creatinine 1.08 H, Estim Creat Clear Calc 31.22, Est GFR (MDRD) Af Amer 62, Est GFR (MDRD) Non-Af 52 L, BUN/Creatinine Ratio 27.8 H, Glucose 161 H, Calcium 9.4, Troponin I High Sens 98.3 H* 04/02/21 21:20: Magnesium 2.3 04/02/21 21:25: PT 15.2 H, INR 1.3, APTT 27.6 04/03/21 00:55: Troponin I High Sens 99.7 H* 04/03/21 02:30: Urine Color Yellow, Urine Clarity Sl. Cloudy, Urine pH 5.0, Ur Specific [place] 1.020, Urine Protein 100 H, Urine Glucose (UA) Normal, Urine Ketones Negative, Urine Occult Blood 250 H, Urine Nitrite Negative, Urine Bilirubin Negative, Urine Urobilinogen Normal, Ur Leukocyte Esterase 25 H, Urine RBC > 100 SEEN, Urine WBC 0 SEEN, Ur Squamous Epith Cells 0 SEEN, Urine Bacteria RARE, Urine Mucus 0 SEEN 04/03/21 03:00: WBC 10.2, RBC 3.94 L, Hgb 11.3 L, Hct 35.1 L, MCV 89.1, MCH 28.7, MCHC 32.2, RDW Std Deviation 44.6 H, RDW Coeff of Azeb 13.6, Plt Count 414, MPV 8.8, Immature Gran % (Auto) 0.400, Neut % (Auto) 90.2 H, Lymph % (Auto) 6.6 L, Cameron % (Auto) 2.4, Eos % (Auto) 0.2, Baso % (Auto) 0.2, Absolute Neuts (auto) 9.2 H, Absolute Lymphs (auto) 0.68 L, Nucleated RBC % 0 04/03/21 03:00: Sodium 138, Potassium 3.6, Chloride 102, Carbon Dioxide 29.0, Anion Gap 7, BUN 28 H, Creatinine 0.94, Estim Creat Clear Calc 34.22, Est GFR (MDRD) Af Amer 73, Est GFR (MDRD) Non-Af 60, BUN/Creatinine Ratio 29.7 H, Glucose 177 H, Calcium 8.5, Total Bilirubin 0.30, AST 18, ALT 19, Alkaline Phosphatase 42 L, Total Protein 7.5, Albumin 3.4, Globulin 4.1, Albumin/Globulin Ratio 0.8 L, Triglycerides 34, Cholesterol 110, LDL Cholesterol 48, VLDL Cholesterol 7, HDL Cholesterol 55, TSH 1.88 04/03/21 03:00: Troponin I High Sens 112.5 H* 04/03/21 05:46: POC Glucose 157 H Radiology Impression Brain CT 04/02/21 21:19 IMPRESSION: Chronic involutional changes of the brain. 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 N.B. : The above Results were Read Back by Jose Angelo MD to TAYLOR EPPS and understanding confirmed on 04/02/2021 21:46:19 (ET). Electronically Signed: Jose Angelo MD at 21:48 EDT , Service support , ADDENDUM: 04/02/212154 IMPRESSION: Chronic involutional changes of the brain. 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 N.B. : The above Results were Read Back by Jose Angleo MD to TAYLOR EPPS and understanding confirmed on 04/02/2021 21:46:19 (ET). Electronically Signed: Jose Angelo MD at 21:48 EDT , Service support , Head/Neck CTA 04/02/21 21:20 IMPRESSION: Atherosclerotic calcific plaques at the origins of the right and left internal carotid artery causing between 50 and 69% narrowing. N.B. : The above Results were Read Back by Jose Angelo MD to TAYLOR EPPS and understanding confirmed on 04/02/2021 21:55:11 (ET). Electronically Signed: Jose Angelo MD at 21:56 EDT , Service support , ADDENDUM: 04/02/21 2203 IMPRESSION: Atherosclerotic calcific plaques at the origins of the right and left internal carotid artery causing between 50 and 69% narrowing. N.B. : The above Results were Read Back by Jose Angelo MD to TAYLOR EPPS and understanding confirmed on 04/02/2021 21:55:11 (ET). Electronically Signed: Jose Angelo MD at 21:56 EDT , Service support , Chest X-Ray 04/02/21 22:40 IMPRESSION: No radiographic evidence of acute cardiopulmonary disease. at 2327 Reported and signed by: Bautista Warner MD Electronically Signed: Bautista Warner MD at 23:26 EDT Tel , Service support , Brain CT 04/03/21 00:45 IMPRESSION: Subtle effacement of the cortical sulci with loss the andrews-white interface in the distribution of the left middle cerebral artery which may represent an acute left MCA infarct. If indicated further evaluation with MRI beneficial. Individualized dose optimization techniques were used for this CT. at 0230 Reported and signed by: Bautista Warner MD Electronically Signed: Bautista Warner MD at 2:29 EDT Tel , Service support , ADDENDUM: 04/03/21 0241 IMPRESSION: Subtle effacement of the cortical sulci with loss the andrews-white interface in the distribution of the left middle cerebral artery which may represent an acute left MCA infarct. If indicated further evaluation with MRI beneficial. Individualized dose optimization techniques were used for this CT. at 0230 Reported and signed by: Bautista Warner MD N.B. : The above Results were Read Back by Bautista Warner MD to Michelle Dyson RN, and understanding confirmed on 04/03/2021 02:33:54 (ET). Electronically Signed: Bautista Warner MD at 2:29 EDT Tel , Service support , Charges/Coding Visit Charges Inpatient E&M: 08891 Init Hosp L3
[2021-04-03 08:31] LABS: Hemoglobin A1c 6.4 % (3.8-5.6)
--- NOTE | 2021-04-03 08:49 | MRI_ITS ---
We are attempting to reach an attending provider to discuss findings. An addendum with communication details will be sent when the communication is complete. EXAM: MR HEAD WITHOUT INTRAVENOUS CONTRAST CLINICAL INDICATION: Acute CVA s/p TPA TECHNIQUE: Multiplanar and multisequence MR images of the brain were obtained without intravenous contrast. This report was created using [employer] report generation technology. COMPARISON: CT head without contrast 04/03/2021. CTA head 04/02/2021. FINDINGS: BRAIN AND EXTRA-AXIAL SPACES: Large area of diffusion restriction involving the entire left MCA territory. This is also visible on the T2 FLAIR sequence. This is consistent with subacute ischemic infarction on the entire left MCA territory. Old cortical based ischemic infarct with cystic encephalomalacia and atrophy in the right parietal lobe and right posterior temporal lobe. No intra- or extra-axial hemorrhage. No intracranial mass or mass effect. Posterior fossa structures are unremarkable. Basal cisterns are patent. SELLA: Unremarkable. Normal sella turcica, pituitary gland, infundibular stalk, optic chiasm and hypothalamus. AUDITORY SYSTEM: Unremarkable. The internal auditory canals are patent. BONES/JOINTS: Unremarkable. No discrete lytic or blastic abnormalities. SINUSES: Unremarkable as visualized. Clear. MASTOID AIR CELLS: Unremarkable as visualized. Clear. ORBITS: Unremarkable as visualized. Both globes, extraocular muscles, optic nerves and retrobulbar fat appear unremarkable. VASCULATURE: Unremarkable as visualized. Normal flow voids in the major intracranial circulation. MRI/Brain without Contrast IMPRESSION: 1. Subacute cortical based ischemic infarction involving the entire left MCA territory secondary to complete thromboembolic occlusion of the petrous segments, cavernous segments and supraclinoid left internal carotid artery and left middle cerebral artery. 2. Old cortical based ischemic infarct with cystic encephalomalacia and atrophy in the right parietal lobe and right posterior temporal lobe. Electronically Signed: Ermias Plascencia MD at 13:38 EDT , Service support ,
[2021-04-03] MEDS: prednisoLONE eye drops (5 mL) 1 DROP OPTH.BTL 1 DRP RIGHT EYE ×4 (10:58→21:04)
--- NOTE | 2021-04-03 11:00 | PN.HOSP_ITS ---
Subjective Subjective Nonverbal, and hard to arouse. Objective Data Objective Data Vital Signs: Vital Signs Temp Pulse Resp BP Pulse Ox 98.8 F 55 L 14 169/61 H 97 04/03/21 10:00 04/03/21 10:00 04/03/21 10:00 04/03/21 10:15 04/03/21 10:00 Oxygen Flow Rate (L/min) 2 Oxygen Delivery Method Room Air Weight: 150 lb 11.081 oz Body Mass Index (BMI) 28.1 Intake & Output: Intake and Output for Last 24 Hours 04/02/21 04/03/21 04/04/21 03:59 03:59 03:59 Intake Total 386.67 / 436.67 270.83 / 270.83 Output Total 778 / 778 75 / 75 Balance -391.33 / -341.33 195.83 / 195.83 Lab / Micro Data Result Diagrams: 04/03/21 03:00 04/03/21 03:00 Labs: Laboratory Results - last 24 hr 04/02/21 21:19: POC Glucose 178 H 04/02/21 21:20: WBC 10.1, RBC 4.11 L, Hgb 11.6 L, Hct 37.2, MCV 90.5, MCH 28.2, MCHC 31.2 L, RDW Std Deviation 45.1 H, RDW Coeff of Azeb 13.6, Plt Count 449, MPV 8.9, Immature Gran % (Auto) 0.500, Neut % (Auto) 62.1, Lymph % (Auto) 25.2, [place] % (Auto) 8.7, Eos % (Auto) 3.1, Baso % (Auto) 0.4, Absolute Neuts (auto) 6.3, Absolute Lymphs (auto) 2.55, Nucleated RBC % 0 04/02/21 21:20: Sodium 138, Potassium 3.9, Chloride 103, Carbon Dioxide 28.0, Anion Gap 7, BUN 30 H, Creatinine 1.08 H, Estim Creat Clear Calc 31.22, Est GFR (MDRD) Af Amer 62, Est GFR (MDRD) Non-Af 52 L, BUN/Creatinine Ratio 27.8 H, Glucose 161 H, Calcium 9.4, Troponin I High Sens 98.3 H* 04/02/21 21:20: Magnesium 2.3 04/02/21 21:25: PT 15.2 H, INR 1.3, APTT 27.6 04/03/21 00:55: Troponin I High Sens 99.7 H* 04/03/21 02:30: Urine Color Yellow, Urine Clarity Sl. Cloudy, Urine pH 5.0, Ur Specific [place] 1.020, Urine Protein 100 H, Urine Glucose (UA) Normal, Urine Ketones Negative, Urine Occult Blood 250 H, Urine Nitrite Negative, Urine Bilirubin Negative, Urine Urobilinogen Normal, Ur Leukocyte Esterase 25 H, Urine RBC > 100 SEEN, Urine WBC 0 SEEN, Ur Squamous Epith Cells 0 SEEN, Urine Bacteria RARE, Urine Mucus 0 SEEN 04/03/21 03:00: WBC 10.2, RBC 3.94 L, Hgb 11.3 L, Hct 35.1 L, MCV 89.1, MCH 28.7, MCHC 32.2, RDW Std Deviation 44.6 H, RDW Coeff of Azeb 13.6, Plt Count 414, MPV 8.8, Immature Gran % (Auto) 0.400, Neut % (Auto) 90.2 H, Lymph % (Auto) 6.6 L, [place] % (Auto) 2.4, Eos % (Auto) 0.2, Baso % (Auto) 0.2, Absolute Neuts (auto) 9.2 H, Absolute Lymphs (auto) 0.68 L, Nucleated RBC % 0 04/03/21 03:00: Sodium 138, Potassium 3.6, Chloride 102, Carbon Dioxide 29.0, Anion Gap 7, BUN 28 H, Creatinine 0.94, Estim Creat Clear Calc 34.22, Est GFR (MDRD) Af Amer 73, Est GFR (MDRD) Non-Af 60, BUN/Creatinine Ratio 29.7 H, Glucose 177 H, Calcium 8.5, Total Bilirubin 0.30, AST 18, ALT 19, Alkaline Phosphatase 42 L, Total Protein 7.5, Albumin 3.4, Globulin 4.1, Albumin/Globulin Ratio 0.8 L, Triglycerides 34, Cholesterol 110, LDL Cholesterol 48, VLDL Cholesterol 7, HDL Cholesterol 55, TSH 1.88 04/03/21 03:00: Hemoglobin A1c 6.4 H 04/03/21 03:00: Troponin I High Sens 112.5 H* 04/03/21 05:46: POC Glucose 157 H Radiography Diagnostic Testing: Radiology Impression Brain CT 04/02/21 21:19 IMPRESSION: Chronic involutional changes of the brain. 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 N.B. : The above Results were Read Back by Jose Angelo MD to TAYLOR EPPS and understanding confirmed on 04/02/2021 21:46:19 (ET). Electronically Signed: Jose Angelo MD at 21:48 EDT , Service support , ADDENDUM: 04/02/21 215 IMPRESSION: Chronic involutional changes of the brain. 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 N.B. : The above Results were Read Back by Jose Angelo MD to TAYLOR EPPS and understanding confirmed on 04/02/2021 21:46:19 (ET). Electronically Signed: Jose Angelo MD at 21:48 EDT , Service support , Head/Neck CTA 04/02/21 21:20 IMPRESSION: Atherosclerotic calcific plaques at the origins of the right and left internal carotid artery causing between 50 and 69% narrowing. N.B. : The above Results were Read Back by Jose Angelo MD to TAYLOR EPPS and understanding confirmed on 04/02/2021 21:55:11 (ET). Electronically Signed: Jose Angelo MD at 21:56 EDT , Service support , ADDENDUM: 04/02/212202 IMPRESSION: Atherosclerotic calcific plaques at the origins of the right and left internal carotid artery causing between 50 and 69% narrowing. N.B. : The above Results were Read Back by Jose Angelo MD to TAYLOR EPPS and understanding confirmed on 04/02/2021 21:55:11 (ET). Electronically Signed: Jose Angelo MD at 21:56 EDT , Service support , Chest X-Ray 04/02/21 22:40 IMPRESSION: No radiographic evidence of acute cardiopulmonary disease. at 8077 Reported and signed by: Bautista Warner MD Electronically Signed: Bautista Warner MD at 23:26 EDT Tel , Service support , Brain CT 04/03/21 00:45 IMPRESSION: Subtle effacement of the cortical sulci with loss the andrews-white interface in the distribution of the left middle cerebral artery which may represent an acute left MCA infarct. If indicated further evaluation with MRI beneficial. Individualized dose optimization techniques were used for this CT. at 0230 Reported and signed by: Bautista Warner MD Electronically Signed: Bautista Warner MD at 2:29 EDT Tel , Service support , ADDENDUM: 04/03/21 0241 IMPRESSION: Subtle effacement of the cortical sulci with loss the andrews-white interface in the distribution of the left middle cerebral artery which may represent an acute left MCA infarct. If indicated further evaluation with MRI beneficial. Individualized dose optimization techniques were used for this CT. at 0230 Reported and signed by: Bautista Warner MD N.B. : The above Results were Read Back by Bautista Warner MD to Michelle Dyson RN, and understanding confirmed on 04/03/2021 02:33:54 (ET). Electronically Signed: Bautista Warner MD at 2:29 EDT Tel , Service support , Physical Exam Const Orientation / Consciousness: lethargic HEENT moist oral mucous membranes Head and Scalp: normocephalic Eyes PERRL and conjunctivae normal Neck supple and no JVD Resp normal respiratory effort, no retractions, no use of accessory muscles and clear to auscultation bilaterally Auscultation: Negative for crackles, rales, rhonchi or wheezes Cardio regular rate, regular rhythm, S1 normal heart sound, S2 normal heart sound and no murmurs GI soft to palpation and non-distended; Negative for hepatosplenomegaly Extremity no clubbing, cyanosis or edema Skin no rashes or lesions noted Neuro Neuro Narrative: Will spontaneously move her left side but cannot follow commands, flaccid paralysis on the right Psych Mood & Affect: flat affect Assessment & Plan Assessment/Plan (1) Acute CVA (cerebrovascular accident): (2) Atrial flutter: (3) Elevated troponin: PLAN: 1. Acute left-sided CVA with right-sided symptoms with hypertensive emergency/a flutter/elevated troponin/HTN/HLD -Continued flaccid paralysis on the right -She is remained somnolent and difficult to arouse -Obtain an MRI, she did receive TPA -We will control blood pressure with nicardipine and as needed labetalol -CTA of the head and neck did not show large vessel occlusion -Not a candidate for anticoagulation at this time secondary to TPA 2. DM2 -Hold home Metformin, continue sliding scale insulin -Accu-Cheks AC at bedtime, make adjustments as necessary DVT: SCDs Charges/Coding Visit Charges Inpatient E&M: 06731 Subs Hosp L2
[2021-04-03] MEDS: Labetalol (Prefilled) 20 MG/4 ML IV ×2 (17:07→20:11)
[2021-04-03 17:55] LABS: Bedside Glucose 123 mg/dL (70-110)
[2021-04-03] MEDS: 0.9% Saline Lock 10 ML Syringe IV (20:11)
--- NOTE | 2021-04-03 22:15 | CT_ITS ---
EXAM: CT HEAD WITHOUT INTRAVENOUS CONTRAST : 1935 CLINICAL INDICATION: s/p TPA, r/o bleed TECHNIQUE: Multiple axial images were obtained of the head without intravenous contrast. This CT exam was performed using one or more of the following dose reduction techniques: automated exposure control, adjustment of the mA and/or kV according to patient size, and/or use of iterative reconstruction technique. This report was created using [employer] report generation technology. COMPARISON: 04/03/2021 FINDINGS: BRAIN AND EXTRA-AXIAL SPACES: There is further decreased density in the distribution left middle cerebral artery compatible infarct. There is encephalomalacia from a remote right parietal occipital infarct. No intra- or extra-axial hemorrhage. No intracranial mass or mass effect. Posterior fossa structures are unremarkable. Ventricles are appropriate for age. No hydrocephalus. Basal cisterns are patent. BONES/JOINTS: Unremarkable. No discrete lytic or blastic abnormalities. VASCULATURE: There is increased density seen in the region of the left middle cerebral artery which may represent thrombus. SINUSES: Unremarkable as visualized. Clear. MASTOID AIR CELLS: Unremarkable. Clear. ORBITS: Visualized globes, extraocular muscles, optic nerves and retrobulbar fat appear unremarkable. OTHER FINDINGS: There is no evidence of hemorrhage. CT/Brain/Head without Contrast IMPRESSION: 1. Large area of decreased density in the distribution left middle cerebral artery compatible with an evolving left middle cerebral artery infarct. There is increased density in the left sylvian fissure which may represent thrombus in the left middle cerebral artery. There is no evidence of hemorrhage. 2. Remote right parietal occipital lobe infarct. Individualized dose optimization techniques were used for this CT. at 2332 Reported and signed by: Bautista Warner MD Electronically Signed: Bautista Warner MD at 23:30 EDT Tel , Service support ,
--- NOTE | 2021-04-03 23:56 | NURSING ---
Report received from Starr HERNANDEZ, this RN assuming care of pt. at this time.
[2021-04-04] VITALS (15 sets, daily range): BP systolic 157–206; BP diastolic 58–83; PULSE 44–57; RESP 14–23; TEMP 34.5–36.9; O2SAT 91–97
[2021-04-04] MEDS: Aspirin 300 MG Suppository RC ×2 (00:15→10:20)
[2021-04-04 00:16] LABS: Bedside Glucose 141 mg/dL (70-110)
[2021-04-04] MEDS: Labetalol (Prefilled) 20 MG/4 ML IV ×4 (04:36→14:03)
[2021-04-04] MEDS: 0.9% Saline Lock 10 ML Syringe IV ×2 (04:37→06:24)
--- NOTE | 2021-04-04 06:10 | PCM.PN.INT ---
Assessment & Plan Assessment/Plan (1) Acute CVA (cerebrovascular accident): PLAN: RECOMMENDATIONS: 1. Continue as needed labetalol. 2. Hospice care meeting this morning. 3. Will sign off from a critical care perspective. Please call with any questions. IMPRESSIONS: 1. Acute CVA status post TPA Secondary to acute ischemic CVA in the setting of large vessel occlusion noted on MRI brain. The patient has suffered an ischemic infarction involving the entire left MCA territory. This is a devastating stroke with little meaningful recovery. Therefore, family is now considering hospice care involvement. 2. Hypertensive emergency Improved. The patient presented to the hospital with profoundly elevated blood pressure parameters and altered mentation. Although the patient was initially being maintained on Cardene, she has since been weaned from the medication. Plan to continue as needed labetalol for now. This note was generated with [employer] dictation software. It may contain incorrect words, spelling, and punctuation that were not noted in checking the note before signing. Subjective Subjective The patient was seen and examined at the bedside this morning. Events from the last 24 hours have been reviewed. The patient has remained afebrile and hemodynamically stable. Her blood pressures have remained on the high side. The patient remains neurologically unchanged from yesterday. MRI completed yesterday did reveal an ischemic infarction involving the entire left MCA territory secondary to complete occlusion of the left internal carotid and left cerebral artery. There are tentative plans for a hospice care meeting with the patient's family this morning. Objective Data Objective Data The patient's most recent lab work, culture data and imaging studies have all been personally reviewed. Vital Signs: Vital Signs Temp Pulse Resp BP Pulse Ox 98.5 F 48 L 16 195/58 H 97 04/04/21 04:00 04/04/21 04:00 04/04/21 04:00 04/04/21 04:35 04/04/21 04:00 Oxygen Flow Rate (L/min) 2 Oxygen Delivery Method Room Air Weight: 68.5 kg Body Mass Index (BMI) 28.1 Intake & Output: Intake and Output for Last 24 Hours 04/02/21 04/03/21 04/04/21 23:59 23:59 23:59 Intake Total 209.17 / 209.17 1423.33 / 1423.33 981.25 / 981.25 Output Total 1353 / 1353 Balance 209.17 / 209.17 70.33 / 70.33 981.25 / 981.25 Lab / Micro Data Attestation: I reviewed the patient's lab results. Result Diagrams: 04/03/21 03:00 04/03/21 03:00 Labs: Laboratory Results - last 24 hr 04/03/21 03:00: Hemoglobin A1c 6.4 H 04/03/21 17:49: POC Glucose 123 H 04/04/21 00:09: POC Glucose 141 H Radiography Diagnostic Testing: Radiology Impression Echocardiogram 04/03/21 00:35 Interpretation Summary Left ventricular systolic function is normal. The estimated ejection fraction is 65 %. Moderate to severe concentric left ventricular hypertrophy. The left atrium is moderately enlarged. The right atrium is mildly enlarged. There is severe mitral annular calcification. Extension of the mitral annular calcification on the base of the posterior mitral valve leaflet. Mild-Moderate (1-2+) mitral valve insufficiency. Mild tricuspid valve insufficiency. Mild to moderate aortic stenosis. Calcified aortic root. Right ventricular systolic pressure estimated to be 36 mmHg. Comment: Transthoracic echocardiogram from 06-12-2019 reported a bubble contrast study negative for right to left interatrial shunt. Ordering Physician: Korey Ruff Referring Physician: DEBBY SALGADO Performed By: Nkechi Gaytan, RDCS, RVT Brain MRI 04/03/21 08:49 IMPRESSION: 1. Subacute cortical based ischemic infarction involving the entire left MCA territory secondary to complete thromboembolic occlusion of the petrous segments, cavernous segments and supraclinoid left internal carotid artery and left middle cerebral artery. 2. Old cortical based ischemic infarct with cystic encephalomalacia and atrophy in the right parietal lobe and right posterior temporal lobe. Electronically Signed: Ermias Plascencia MD at 13:38 EDT , Service support , ADDENDUM: 04/03/21 1354 IMPRESSION: 1. Subacute cortical based ischemic infarction involving the entire left MCA territory secondary to complete thromboembolic occlusion of the petrous segments, cavernous segments and supraclinoid left internal carotid artery and left middle cerebral artery. 2. Old cortical based ischemic infarct with cystic encephalomalacia and atrophy in the right parietal lobe and right posterior temporal lobe. N.B. : The above Results were Read Back by Ermias Plascencia MD to Nicanor Ferrer DO, and understanding confirmed on 04/03/2021 13:47:31 (ET). Electronically Signed: Ermias Plascencia MD at 13:38 EDT , Service support , Brain CT 04/03/21 22:15 IMPRESSION: 1. Large area of decreased density in the distribution left middle cerebral artery compatible with an evolving left middle cerebral artery infarct. There is increased density in the left sylvian fissure which may represent thrombus in the left middle cerebral artery. There is no evidence of hemorrhage. 2. Remote right parietal occipital lobe infarct. Individualized dose optimization techniques were used for this CT. at 2332 Reported and signed by: Bautista Warner MD Electronically Signed: Bautista Warner MD at 23:30 EDT Tel , Service support , Physical Exam Const no apparent distress General Appearance: lethargic HEENT normocephalic and head/scalp atraumatic Neck supple General: trachea midline Resp normal respiratory effort Auscultation: Negative for rales, rhonchi or wheezes Cardio Rate: bradycardia Rhythm: abnormal rhythm GI normal to inspection, nondistended, normoactive bowel sounds Extremity no clubbing, cyanosis or edema Skin no rashes or lesions noted Neuro Neuro Narrative: Flaccid right-sided paralysis. Moves left upper and lower extremity spontaneously. Nonverbal. Psych Mood & Affect: flat affect Charges/Coding Visit Charges Inpatient E&M: 37398 Subs Hosp L2
[2021-04-04 06:31] LABS: Bedside Glucose 141 mg/dL (70-110)
--- NOTE | 2021-04-04 08:42 | CASEMGMT ---
Addendum entered by Mariana Sterling 04/04/21 10:39: Rupert from hospice is here, son then called in and stated to RN thought hospice was meeting w/family at home. Rupert called son and she is now on her way to [place] to meet w/family. She is to call this SW once she has DME ordered and transport can be set up. PORFIRIO Faulkner Original Note: SW spoke w/Betty from hospice, Rupert from [facility] is coming to meet w/family at the hospital at 9:30am. The referral was sent over by the ICU yesterday. PORFIRIO Faulkner
--- NOTE | 2021-04-04 09:28 | CASEMGMT ---
PHQ-9 not completed as pt is not able to participate. PORFIRIO Faulkner
[2021-04-04] MEDS: prednisoLONE eye drops (5 mL) 1 DROP OPTH.BTL 1 DRP RIGHT EYE ×2 (10:18→13:57)
--- NOTE | 2021-04-04 11:23 | PN.HOSP_ITS ---
Objective Data Objective Data Vital Signs: Vital Signs Temp Pulse Resp BP Pulse Ox 98.2 F 46 L 16 180/62 H 95 04/04/21 11:00 04/04/21 11:00 04/04/21 11:00 04/04/21 11:00 04/04/21 11:00 Oxygen Flow Rate (L/min) 2 Oxygen Delivery Method Room Air Weight: 151 lb 0.266 oz Body Mass Index (BMI) 28.1 Intake & Output: Intake and Output for Last 24 Hours 04/02/21 04/03/21 04/04/21 23:59 23:59 23:59 Intake Total 209.17 / 209.17 1423.33 / 1423.33 981.25 / 981.25 Output Total 1353 / 1353 75 / 75 Balance 209.17 / 209.17 70.33 / 70.33 906.25 / 906.25 Lab / Micro Data Result Diagrams: 04/03/21 03:00 04/03/21 03:00 Labs: Laboratory Results - last 24 hr 04/03/21 17:49: POC Glucose 123 H 04/04/21 00:09: POC Glucose 141 H 04/04/21 06:24: POC Glucose 141 H Radiography Diagnostic Testing: Radiology Impression Echocardiogram 04/03/21 00:35 Interpretation Summary Left ventricular systolic function is normal. The estimated ejection fraction is 65 %. Moderate to severe concentric left ventricular hypertrophy. The left atrium is moderately enlarged. The right atrium is mildly enlarged. There is severe mitral annular calcification. Extension of the mitral annular calcification on the base of the posterior mitral valve leaflet. Mild-Moderate (1-2+) mitral valve insufficiency. Mild tricuspid valve insufficiency. Mild to moderate aortic stenosis. Calcified aortic root. Right ventricular systolic pressure estimated to be 36 mmHg. Comment: Transthoracic echocardiogram from 06-12-2019 reported a bubble contrast study negative for right to left interatrial shunt. Ordering Physician: Korey Ruff Referring Physician: DEBBY SALGADO Performed By: Nkechi Gaytan, RDCS, RVT Brain MRI 04/03/21 08:49 IMPRESSION: 1. Subacute cortical based ischemic infarction involving the entire left MCA territory secondary to complete thromboembolic occlusion of the petrous segments, cavernous segments and supraclinoid left internal carotid artery and left middle cerebral artery. 2. Old cortical based ischemic infarct with cystic encephalomalacia and atrophy in the right parietal lobe and right posterior temporal lobe. Electronically Signed: Ermias Plascencia MD at 13:38 EDT , Service support , ADDENDUM: 04/03/21 1354 IMPRESSION: 1. Subacute cortical based ischemic infarction involving the entire left MCA territory secondary to complete thromboembolic occlusion of the petrous segments, cavernous segments and supraclinoid left internal carotid artery and left middle cerebral artery. 2. Old cortical based ischemic infarct with cystic encephalomalacia and atrophy in the right parietal lobe and right posterior temporal lobe. N.B. : The above Results were Read Back by Ermias Plascencia MD to Nicanor Ferrer DO, and understanding confirmed on 04/03/2021 13:47:31 (ET). Electronically Signed: Ermias Plascencia MD at 13:38 EDT , Service support , Brain CT 04/03/21 22:15 IMPRESSION: 1. Large area of decreased density in the distribution left middle cerebral artery compatible with an evolving left middle cerebral artery infarct. There is increased density in the left sylvian fissure which may represent thrombus in the left middle cerebral artery. There is no evidence of hemorrhage. 2. Remote right parietal occipital lobe infarct. Individualized dose optimization techniques were used for this CT. at 2332 Reported and signed by: Bautista Warner MD Electronically Signed: Bautista Warner MD at 23:30 EDT Tel , Service support , Physical Exam Narrative General: No spontaneous opening of eyes. Nonverbal, responds to noxious stimuli. HEENT: Atraumatic, PERRLA, EOMI, Normocephalic Oral: No Gingival or Mucosal Lesions/ Ulcerations Neck: Supple, No JVD, Negative Carotid Bruits Lungs: Air entry diminished in bilateral lung bases. No crepitation/rhonchi Cardiovascular: Regular rate, Regular Rhythm, Normal S1, Normal S2, No murmurs Abdomen: Bowel Sounds Present, Soft, Non Tender, Non-Distended : Diaz catheter draining clear urine. No renal angle tenderness. No suprapubic tenderness. Extremities: No edema, Capillary Refill Less than 3 Seconds Skin: No rashes, No breakdown Musculoskeletal: No Tenderness to Palpation of Joints or Extremities Neurological: Right-sided weakness. Mild facial drooping. Detail neuro exam unobtainable Psych/Mental Status: Unresponsive Assessment & Plan Assessment/Plan (1) Acute CVA (cerebrovascular accident): (2) Atrial flutter: (3) Elevated troponin: PLAN: 1. Acute left-sided CVA with right-sided symptoms with hypertensive emergency/a flutter/elevated troponin/HTN/HLD -Continued flaccid paralysis on the right -She is remained somnolent and difficult to arouse -Obtain an MRI, she did receive TPA -We will control blood pressure with nicardipine and as needed labetalol -CTA of the head and neck did not show large vessel occlusion -Not a candidate for anticoagulation at this time secondary to TPA 2. DM2 -Hold home Metformin, continue sliding scale insulin -Accu-Cheks AC at bedtime, make adjustments as necessary DVT: SCDs
[2021-04-04 12:50] LABS: Bedside Glucose 149 mg/dL (70-110)
--- NOTE | 2021-04-04 12:55 | CASEMGMT ---
Addendum entered by Mariana Sterling 04/04/21 13:49: JORDI faxed discharge instructions and DNR to [facility]. PORFIRIO Faulkner Original Note: Rupert met w/family at home, all papers signed for hospice, DME ordered and should be there in the next hour. JORDI called ricky Gonzalez and explained looking to set up transport for about 3pm today so it will give time for the DME to get there, he is agreeable to this. JORDI set up 3pm ambulance w/Physicians. JORDI let pt's ricky Gonzalez, [facility], and bedside RN know time. Once discharge paperwork is completed JORDI will fax over to [facility]. PORFIRIO Faulkner
--- NOTE | 2021-04-04 13:27 | DCINST_ITS ---
Discharge Instructions Diet Discharge Diet: - (N.p.o.) Activity Discharge Activity: May Not Drive Dressing / Incision Call your doctor if you observe: - (Going home with home hospice care) Follow Up Care Test Results: Test results from this visit will be discussed in further detail at your follow-up appointment, if applicable. Discharge Plan Admission Admit Date/Time: 04/02/21 23:32 Primary Reason for Your Visit: Large left MCA stroke Attending Provider: Jay Dang Primary Care Provider: Gilmer Flores Consulting Providers: Nicanor Ferrer ; Kevin Gardner ; Lyndsey Simon DIRECTOR OF RECRUITMENT Discharge Orders/Prescriptions Prescriptions: New albuterol sulfate 2.5 mg /3 mL (0.083 %) Solution For Nebulization 2.5 mg inhalation Q2H PRN PRN (Reason: SOB/Wheezing) Qty: 0 RF: 0 Continued ofloxacin 1 DROP drops 1 drp RIGHT EYE 4X/DAY RF: 0 prednisolone acetate 10 ML drops,suspension 1 drp RIGHT EYE 4X/DAY RF: 0 brinzolamide-brimonidine 1-0.2% bottle 1 drp EACH EYE BID RF: 0 Discontinued metoprolol succinate [Toprol XL] 50 MG tablet extended release 24 hr 50 mg PO BID RF: 0 metformin 500 mg tablet 250 mg PO DAILY RF: 0 atorvastatin 80 mg tablet 80 mg PO DAILY RF: 0 hydrochlorothiazide 12.5 mg capsule 12.5 mg PO DAILY RF: 0 Referrals / Follow Up: Gilmer Flores DO [Primary Care Provider] - In 1 Week (Advised to call PCP by family member) Disposition Disposition (needs filled in before D/C Order can be placed): Hospice in Home
--- NOTE | 2021-04-04 13:35 | PCM.DC.SUM ---
Providers Date of Admission: 04/02/21 Primary Care Physician: Dr. Gilmer Salgado, Consultations 04/02/21 22:03 Consult: Electronic Industrial Controls Mechanic / Pulmonary Medicine Routine Consulting Provider: Pulmonary Medicine nakul Agustin Reason for Consult: stroke for alteplase EMERGENT Consult: Yes Notified: Yes Date Notified: 04/02/21 Time Notified: 22:03 Method of Notification: Text Comments:: If admitted, Hospitalist will consult Electronic Industrial Controls Mechanic 04/03/21 00:35 Consult: Electronic [employer] Controls Mechanic / Pulmonary Medicine Routine Consulting Provider: Nicanor Ferrer Reason for Consult: stroke for alteplase EMERGENT Consult: No Notified: Yes Date Notified: 04/02/21 Time Notified: 23:24 Method of Notification: Text Reason For Visit: ACUTE CVA Diagnosis Discharge Diagnosis (1) Acute CVA (cerebrovascular accident): Status: Acute Code(s): I63.9 - Cerebral infarction, unspecified (2) Atrial flutter: Status: Acute Code(s): I48.92 - Unspecified atrial flutter (3) Elevated troponin: Status: Acute Code(s): R77.8 - Other specified abnormalities of plasma proteins Medications at Discharge Home Medications brinzolamide-brimonidine 1 drp EACH EYE BID 06/11/19 ofloxacin 1 drp RIGHT EYE 4X/DAY 06/11/19 prednisolone acetate 1 drp RIGHT EYE 4X/DAY 06/11/19 albuterol sulfate 2.5 mg INHALATION Q2H PRN PRN #0 ml 04/04/21 Hospital Course Summary of Care Provided Hospital Course: The patient is 85-year-old female was admitted with altered mental status and right-sided weakness. Patient was noted to be in atrial flutter on EKG. Chest x-ray no acute cardiopulmonary process. CT brain shows old infarct involving posterior right parietal/occipital lobes. [facility] telestroke was consulted by ER physician. CTA head and neck shows calcific plaque at origin of right and left ICA about 50 to 69% narrowing respectively. Patient was given TPA and further admitted in the ICU. Electronic Industrial Controls Mechanic was consulted. Patient also found to have acute encephalopathy possibly due to stroke. Patient had mildly elevated high-sensitivity troponin maximum 112. Patient has comorbidities of hypertension, chronic low back pain. Blood pressure was on higher side about 185/68. Patient is nonverbal, not responsive, moans on deep noxious stimulus, comatose state. MRI done on 04/03 shows ischemic infarction involving entire left MCA territory due to complete occlusion of left ICA and left cerebral artery. Hospice care consult was done and patient accepted for home hospice care. Physical Exam Narrative General: No spontaneous opening of eyes. Nonverbal, responds to noxious stimuli. In coma HEENT: Atraumatic, PERRLA, EOMI, Normocephalic Oral: No Gingival or Mucosal Lesions/ Ulcerations Neck: Supple, No JVD, Negative Carotid Bruits Lungs: Air entry diminished in bilateral lung bases. No crepitation/rhonchi Cardiovascular: Regular rate, Regular Rhythm, Normal S1, Normal S2, No murmurs Abdomen: Bowel Sounds Present, Soft, Non Tender, Non-Distended : Diaz catheter draining clear urine. No renal angle tenderness. No suprapubic tenderness. Extremities: No edema, Capillary Refill Less than 3 Seconds Skin: No rashes, No breakdown Musculoskeletal: No Tenderness to Palpation of Joints or Extremities Neurological: Right-sided weakness. Mild facial drooping. Detail neuro exam unobtainable Psych/Mental Status: Unresponsive Weight / BMI Weight Weight: 151 lb 0.266 oz Body Mass Index (BMI) 28.1 ABG / Lab / Microbiology Data Result Diagrams: 04/03/21 03:00 04/03/21 03:00 Laboratory: Laboratory Results - last 24 hr 04/03/21 17:49: POC Glucose 123 H 04/04/21 00:09: POC Glucose 141 H 04/04/21 06:24: POC Glucose 141 H 04/04/21 12:43: POC Glucose 149 H Radiography Diagnostic Testing: Radiology Impression Echocardiogram 04/03/21 00:35 Interpretation Summary Left ventricular systolic function is normal. The estimated ejection fraction is 65 %. Moderate to severe concentric left ventricular hypertrophy. The left atrium is moderately enlarged. The right atrium is mildly enlarged. There is severe mitral annular calcification. Extension of the mitral annular calcification on the base of the posterior mitral valve leaflet. Mild-Moderate (1-2+) mitral valve insufficiency. Mild tricuspid valve insufficiency. Mild to moderate aortic stenosis. Calcified aortic root. Right ventricular systolic pressure estimated to be 36 mmHg. Comment: Transthoracic echocardiogram from 06-12-2019 reported a bubble contrast study negative for right to left interatrial shunt. Ordering Physician: Korey Ruff Referring Physician: GILMER SALGADO Performed By: Nkechi Gaytan, RDCS, RVT Brain MRI 04/03/21 08:49 IMPRESSION: 1. Subacute cortical based ischemic infarction involving the entire left MCA territory secondary to complete thromboembolic occlusion of the petrous segments, cavernous segments and supraclinoid left internal carotid artery and left middle cerebral artery. 2. Old cortical based ischemic infarct with cystic encephalomalacia and atrophy in the right parietal lobe and right posterior temporal lobe. Electronically Signed: Ermias Plascencia MD at 13:38 EDT , Service support , ADDENDUM: 04/03/21 1354 IMPRESSION: 1. Subacute cortical based ischemic infarction involving the entire left MCA territory secondary to complete thromboembolic occlusion of the petrous segments, cavernous segments and supraclinoid left internal carotid artery and left middle cerebral artery. 2. Old cortical based ischemic infarct with cystic encephalomalacia and atrophy in the right parietal lobe and right posterior temporal lobe. N.B. : The above Results were Read Back by Ermias Plascencia MD to Nicanor Ferrer DO, and understanding confirmed on 04/03/2021 13:47:31 (ET). Electronically Signed: Ermias Plascencia MD at 13:38 EDT , Service support , Brain CT 04/03/21 22:15 IMPRESSION: 1. Large area of decreased density in the distribution left middle cerebral artery compatible with an evolving left middle cerebral artery infarct. There is increased density in the left sylvian fissure which may represent thrombus in the left middle cerebral artery. There is no evidence of hemorrhage. 2. Remote right parietal occipital lobe infarct. Individualized dose optimization techniques were used for this CT. at 2332 Reported and signed by: Bautista Warner MD Electronically Signed: Bautista Warner MD at 23:30 EDT Tel , Service support , D/C Instructions Discharge Diet: - (N.p.o.) Call your doctor if you observe: - (Going home with home hospice care) Meaningful Use Info Meaningful Use Diagnoses (Choose all that apply): Ischemic CVA CVA Therapy Assessed for PT,OT and/or ST?: Yes Ischemic Stroke Antithrombotic order at d/c?: Yes Dx of Atrial fib/flutter?: Yes Anticoagulant at discharge?: No Reason anticoagulant not ordered: Hospice Statins at discharge?: No Reason Statin not ordered: Hospice Primary Dx Acute Ischemic CVA?: Yes IV tPA ordered during stay?: Yes Discharge Plan Admission Admit Date/Time: 04/02/21 23:32 Primary Reason for Your Visit: Large left MCA stroke Attending Provider: Jay Dang Primary Care Provider: Gilmer Salgado Consulting Providers: Nicanor Ferrer ; Kevin Gardner ; Lyndsey Simon FONDANT MACHINE OPERATOR Discharge Orders/Prescriptions Prescriptions: New albuterol sulfate 2.5 mg /3 mL (0.083 %) Solution For Nebulization 2.5 mg inhalation Q2H PRN PRN (Reason: SOB/Wheezing) Qty: 0 RF: 0 Continued ofloxacin 1 DROP drops 1 drp RIGHT EYE 4X/DAY RF: 0 prednisolone acetate 10 ML drops,suspension 1 drp RIGHT EYE 4X/DAY RF: 0 brinzolamide-brimonidine 1-0.2% bottle 1 drp EACH EYE BID RF: 0 Discontinued metoprolol succinate [Toprol XL] 50 MG tablet extended release 24 hr 50 mg PO BID RF: 0 metformin 500 mg tablet 250 mg PO DAILY RF: 0 atorvastatin 80 mg tablet 80 mg PO DAILY RF: 0 hydrochlorothiazide 12.5 mg capsule 12.5 mg PO DAILY RF: 0 Referrals / Follow Up: Gilmer Salgado DO [Primary Care Provider] - In 1 Week (Advised to call PCP by family member) Disposition Disposition (needs filled in before D/C Order can be placed): Hospice in Home Charges/Coding Visit Charges Inpatient E&M: 14873 Disch Hosp
== END 2021-04-04 15:25 | disposition hospice, home (50) | DRG 61 ==
LOC: ED 23:21 → ICU 04-03 00:06
PROVIDERS: Family Medicine; Admitting Provider Hospitalist; Emergency Provider Emergency Medicine; PCP Family Medicine; Visit Provider Internal Medicine
DX: I63.512 Cerebral infarction due to unspecified occlusion or stenosis of left middle cerebral artery (principal); I63.232 Cerebral infarction due to unspecified occlusion or stenosis of left carotid arteries; G81.91 Hemiplegia, unspecified affecting right dominant side; I48.92 Unspecified atrial flutter; G93.40 Encephalopathy, unspecified; I16.1 Hypertensive emergency; R29.727 NIHSS score 27; I10 Essential (primary) hypertension; E78.5 Hyperlipidemia, unspecified; E11.9 Type 2 diabetes mellitus without complications; M54.5 Low back pain; G89.29 Other chronic pain; R74.8 Abnormal levels of other serum enzymes; Z79.84 Long term (current) use of oral hypoglycemic drugs; Z79.899 Other long term (current) drug therapy; Z86.73 Personal history of transient ischemic attack (TIA), and cerebral infarction without residual deficits
CPT/HCPCS: 51702; 70450; 70496; 70498; 70551; 71045; 80048; 80053; 80061; 81001; 82962; 83036; 83735; 84443; 84484; 85025; 85610; 85730; 92526; 92610; 93005; 93306; 99285; J2997; J7030; Q9967; A4216